=== PATIENT | female | born 1985 | race Caucasian/White ===

== ENCOUNTER → 2017-11-03 15:37 | Outpatient (REF) | payer MEDICARE, MEDICAID, SELFPAY ==
--- NOTE | 2017-11-03 15:00 | SKI_PTH ---
PATIENT: Cassie Argueta LOC: [facility] U#:[id number] AGE/SX: 39/F ROOM: RE11/03/[address]: Silvia Appiah : 1985 BED: DIS: SPEC #: [id number] RECD: 11/04/17 12:25 STATUS: SD LOPEZ #: [id number] MUSTAPHA: 11/03/17 15:[address]: Silvia Appiah DEPT: Surgical Specimen RECD BY: Enid Bates ENTERED: 11/04/17 12:27 SP TYPE: JAMIE OT DR: Anny Willoughby Tissues: 1 - SKIN BIOPSY(SHAVE/PUNCH) Procedures: SKIN LEVEL 4 SPECIAL STAIN 1 Comments: [id number]
== END ==
LOC: NCHCN 15:37
PROVIDERS: Visit Provider Nurse Practitioner
DX: B35.3 Tinea pedis (principal)
CPT/HCPCS: 88305; 88312

== ENCOUNTER 2018-04-22 01:25 | Outpatient (CLI) | payer MEDICARE, MEDICAID, SELFPAY ==
[2018-04-22 10:20] LABS: Abs Immature Grans 0.01 k/cumm (0.0-0.09); Absolute Basophil Count 0.01 k/cumm (0.0-0.2); Absolute Eosinophil Count 0.09 k/cumm (0.0-0.7); Absolute Lymphocyte Count 1.26 k/cumm (1.2-3.4); Absolute Monocyte Count 0.51 k/cumm (0.11-0.7); Absolute Neutrophil Count 2.49 k/cumm (1.2-6.7); Basophils % 0.2; Eosinophils % 2.1; HCT 45.2 % (36.0-46.0); HGB 15.1 g/dL (12.0-15.5); Immature Grans % 0.2; Lymphocytes % 28.8; Mean Corp. HGB Concentration 33.4 g/dL (32.0-36.0); Mean Corpuscular Hemoglobin 28.3 pg (27.0-33.0); Mean Corpuscular Volume 84.8 fL (80-95); Mean Platelet Volume 9.3 fL (8.0-11.0); Monocytes % 11.7; Platelet Count 259 x1000/uL (130-400); RBC 5.33 m/cumm (4.00-5.20); RBC Distribution Width 13.9 % (11.7-14.6); White Blood Cell Count 4.37 k/cumm (4.4-10.8)
[2018-04-22 11:22] LABS: ALT 39 U/L (12-78); AST 22 U/L (15-37); Albumin 3.8 g/dL (3.4-5.0); Alkaline Phosphatase 112 U/L (46-116); Anion Gap 12.3 mmol/L (3-11); BUN 16 mg/dL (7-18); Bilirubin, Total 0.4 mg/dL (0.2-1.0); CO2 24.7 mmol/L (21.0-32.0); Calcium 8.8 mg/dL (8.5-10.1); Chloride 105 mmol/L (98-107); Cholesterol 192 mg/dL (50-200); Glucose 93 mg/dL (70-100); HDL Cholesterol 46 mg/dL (40-60); LDL CHOLESTEROL 136 mg/dL (<100); Sodium 142 mmol/L (136-145); TSH (W/Ref FT4) 11.32 uIU/mL (0.358-3.74); Total Protein 7.5 g/dL (6.4-8.2); Triglyceride 98 mg/dL (30-150)
[2018-04-22 11:47] LABS: FREE T4 0.75 ng/dL (0.76-1.46)
== END 2018-04-22 01:45 ==
PROVIDERS: PCP Nurse Practitioner Family; Visit Provider Nurse Practitioner Family
DX: F31.9 Bipolar disorder, unspecified (principal); Z79.899 Other long term (current) drug therapy; R53.83 Other fatigue; R63.5 Abnormal weight gain
CPT/HCPCS: 36415; 80053; 80061; 83721; 84439; 84443; 85025

== ENCOUNTER 2018-06-09 14:07 | Outpatient (REF) | payer MEDICARE, MEDICAID, SELFPAY ==
[2018-06-09 22:14] LABS: TSH (W/Ref FT4) 2.67 uIU/mL (0.358-3.74)
== END 2018-06-09 14:27 ==
LOC: NCHCN 14:07
PROVIDERS: PCP Nurse Practitioner Family; Visit Provider Nurse Practitioner
DX: E03.9 Hypothyroidism, unspecified (principal); N89.8 Other specified noninflammatory disorders of vagina
CPT/HCPCS: 84443; 87480; 87510; 87660

== ENCOUNTER 2018-10-17 19:30 | Emergency (ER) | payer MEDICARE, MEDICAID, SELFPAY ==
[2018-10-17 19:45] VITALS: BP 152/79; PULSE 87; RESP 18; TEMP 37.3; O2SAT 96
--- NOTE | 2018-10-17 20:36 | ED.GENADUL_ITS ---
Discharge Plan Disposition Patient Disposition: HOME Discharge Details Chief Complaint: SOB Clinical Impression: Chest pain, Shortness of breath Primary Care Provider: Leyda Hawkins ED Provider: Agapito Stubbs Home Meds and New Rx's Prescriptions: Continued oxcarbazepine 150 MG tablet 150 mg PO DAILY RF: 0 levothyroxine 50 mcg Tablet 50 mcg PO DAILY RF: 0 Discharge Instructions Instructions: Chest Pain (ED), Dyspnea (ED) Additional Instructions: Follow-up with your pcp and psychiatrist this week. Return to ED if symptoms worsen. Medical Decision Making Labs, EKG, chest x-ray unremarkable. No evidence of PE, pneumonia, pericarditis, cardiac ischemia or other pathology to account for patient's symptoms. On further discussion of her symptoms, she describes a heaviness in her chest and neck when lying supine and a sensation of not being able to catch her breath until she sits on an incline or standing upright. She also states that when she goes into a deep sleep she awakens gasping for air. I relayed that her symptoms sound like sleep apnea. She informs me that she just had a sleep apnea study but she does not get the results until mid November. I advised her to follow-up with her PCP for results of testing and appropriate treatment if this is identified. She has stopped her new medication which may or may not be attributing to her symptoms. She will follow-up with her primary care provider for further evaluation and treatment. ED return precautions reviewed. HALEY Lazo is a 33-year-old woman with history of bipolar disorder with psychosis, presenting for evaluation of which she believes to be medication side effect. She previously was on Zyprexa but this was no longer effective and she was having adverse effects so she discontinued it last month and started a new medication called Vraylar. She continues with her mood stabilizer which seems to be effective. She states that over the past week since increasing dose of Vraylar, she has felt chest discomfort and shortness of breath when she lies flat. Symptoms are worse when she is trying to sleep at night. Her prescriber instructed her to discontinue the Vraylar and come to the emergency department for evaluation. She has no history of known cardiovascular disease. She currently has no symptoms. General Date/Time Provider Initiated Documentation: 10/17/18 20:00 . Related Data Home Medications Medication Instructions Recorded Confirmed oxcarbazepine 150 mg PO DAILY 05/30/15 10/17/18 levothyroxine 50 mcg PO DAILY 10/17/18 10/17/18 Allergies Allergy/AdvReac Type Severity Reaction Status Date / Time lamotrigine [From Lamictal] Allergy Severe face swells Unverified 10/26/15 11:58 aluminum hydroxide Allergy Intermediate Swelling/Ed Unverified 10/26/15 11:58 [From Mylanta] samantha calcium carbonate Allergy Intermediate Swelling/Ed Unverified 10/26/15 11:58 [From Mylanta] samantha magnesium carbonate Allergy Intermediate Swelling/Ed Unverified 10/26/15 11:58 [From Mylanta] samantha magnesium hydroxide Allergy Intermediate Swelling/Ed Unverified 10/26/15 11:58 [From Mylanta] samantha simethicone [From Mylanta] Allergy Intermediate Swelling/Ed Unverified 10/26/15 11:58 samantha benzoyl peroxide AdvReac Unknown Skin Rash Unverified 06/01/17 06:43 Barium used for barium AdvReac Intermediate Nausea Uncoded 10/26/15 11:58 swallow General Stated Complaint: SOB INDER: 3 Review of Systems Constitutional Denies chills, Denies fatigue, Denies fever(s) and Denies lethargy Eyes Denies loss of vision ENT Denies nasal congestion and Denies sore throat Cardiovascular Denies chest pain and Denies dyspnea Respiratory Denies cough and Denies dyspnea Gastrointestinal Denies abdominal pain, Denies nausea and Denies vomiting Musculoskeletal Denies back pain, Denies muscle weakness and Denies numbness Integumentary/Breasts Denies rash Neurologic Denies focal weakness, Denies loss of vision and Denies numbness Endocrine Denies fatigue Hematologic/Lymphatic Denies easy bruising [facility] Social History Smoking/Tobacco Use Status: Never Alcohol Intake: never Drug use: Never Substance use type: does not use Do you feel safe in your relationship?: Yes Exam Const General: cooperative, healthy appearing and no acute distress [facility] Head: normal to inspection Ears: hearing grossly normal bilaterally Eyes EOM: EOM intact bilaterally Neck Neck: normal visual inspection Resp Effort & Inspection: normal respiratory effort Auscultation: clear to auscultation bilaterally Cardio Rate: regular rate Rhythm: regular rhythm Heart Sounds: no murmurs GI Palpation: soft and nontender Skin General skin exam: no rashes or lesions noted Neuro General: alert, awake and oriented x3 Speech: speech normal Gait: normal gait Extrem General: normal to inspection Course Vital Signs Temperature 37.3 C 10/17/18 19:45 Pulse 87 10/17/18 19:45 Respiratory Rate 18 10/17/18 19:45 Blood Pressure 152/79 H 10/17/18 19:45 Pulse Oximetry 96 10/17/18 19:45 Temperature 37.3 C 10/17/18 19:45 Temperature Source Oral 10/17/18 19:45 Pulse 87 10/17/18 19:45 Respiratory Rate 18 10/17/18 19:45 Blood Pressure 152/79 H 10/17/18 19:45 Pulse Oximetry 96 10/17/18 19:45
[2018-10-17 21:07] VITALS: RESP 18
[2018-10-17 21:17] LABS: Absolute Basophil Count 0.03 k/cumm (0.0-0.2); Absolute Eosinophil Count 0.06 k/cumm (0.0-0.7); Absolute Lymphocyte Count 2.25 k/cumm (1.2-3.4); Absolute Monocyte Count 0.54 k/cumm (0.11-0.7); Basophils % 0.4; Eosinophils % 0.8; HCT 44.1 % (36.0-46.0); HGB 14.7 g/dL (12.0-15.5); Lymphocytes % 30.5; Mean Corp. HGB Concentration 33.3 g/dL (32.0-36.0); Mean Corpuscular Hemoglobin 28.3 pg (27.0-33.0); Monocytes % 7.3; Platelet Count 276 x1000/uL (130-400); RBC 5.19 m/cumm (4.00-5.20); White Blood Cell Count 7.38 k/cumm (4.4-10.8)
[2018-10-17 21:36] LABS: ALT 58 U/L (12-78); AST 21 U/L (15-37); Albumin 3.9 g/dL (3.4-5.0); Alkaline Phosphatase 104 U/L (46-116); Anion Gap 9.2 mmol/L (3-11); BUN 17 mg/dL (7-18); Bilirubin, Total 0.2 mg/dL (0.2-1.0); CO2 27.8 mmol/L (21.0-32.0); CREATININE 0.74 mg/dL (0.55-1.02); Calcium 9.2 mg/dL (8.5-10.1); Chloride 104 mmol/L (98-107); Glucose 106 mg/dL (70-100); NT-proBNP 41 pg/mL; Potassium 3.5 mmol/L (3.5-5.1); Sodium 141 mmol/L (136-145); Total Protein 8.2 g/dL (6.4-8.2)
[2018-10-17 21:37] LABS: Troponin I < 0.05 ng/mL (0.00-0.06)
--- NOTE | 2018-10-17 22:07 | DI.RAD_ITS ---
SYMPTOM/DIAGNOSIS: DYSPNEA, CHEST PAIN PA AND LATERAL CHEST: The heart is normal in size. The lungs are clear. The mediastinal structures and pleura appear intact. CONCLUSION: Normal chest.
[2018-10-17 22:18] LABS: D-Dimer 160 ng/mlFEU (<500)
--- NOTE | 2018-10-17 22:55 | DI.VRAD_ITS ---
EXAM: XR Chest, 2 Views EXAM DATE/TIME: 10/17/2018 10:09 PM CLINICAL HISTORY: 33 years old, female; Other: Dyspnea and chest pain TECHNIQUE: Imaging protocol: XR of the chest, 2 views. COMPARISON: No relevant prior studies available. FINDINGS: Lungs: Clear lungs. Pleural space: No pneumothorax. No sizable pleural effusion. Heart/Mediastinum: No cardiomegaly. Bones/joints: Unremarkable. IMPRESSION: Clear lungs. Dictated and Authenticated by: Hiram Fermin MD. Ordering:ROSA Altman MD
[2018-10-17 23:26] VITALS: BP 152/79; PULSE 87; RESP 18; O2SAT 96
== END 2018-10-17 23:20 | disposition home or self-care (01) ==
PROVIDERS: Emergency Provider Physician Assistant Medical; PCP Nurse Practitioner Family
DX: R07.9 Chest pain, unspecified (principal); R06.02 Shortness of breath
CPT/HCPCS: 36415; 80053; 81025; 93005; 99285; 71046; 83880; 84484; 84703; 85025; 85379; 93010

== ENCOUNTER 2019-06-27 02:03 | Outpatient (CLI) | payer MEDICARE, MEDICAID, SELFPAY ==
--- NOTE | 2019-06-27 | DI.MRI_ITS ---
EXAM: MR BRAIN PITUITARY WO/W CLINICAL HISTORY: ENLARGED PITUITARY GLAND, E23.6. TECHNIQUE: Multiplanar multisequence MRI was performed. MR examination of the brain was performed w ith additional multiplanar thin slice imaging of the pituitary prior to and following contrast admini stration. COMPARISON: MRI BRAIN - PITUITARY W/WO from 07/04/2009 FINDINGS: Examination is compared to prior study of July 2009. Pituitary is mildly enlarged, measuring about 11 x 8 x 16 millimeters, compared to about 10 x 9 x 17 millimeters on the prior study. No invasion o f surrounding structures. No deformity of the optic chiasm. Unremarkable appearance of the sphenoid sinus. No signal abnormality identified in the brain. Ventricular system is normal in appearance. Diffusio n-weighted imaging and susceptibility-weighted imaging unremarkable. Normal flow void in the [place] vasculature. IMPRESSION: Mild pituitary enlargement stable since prior study of 07/04/2009. DATA REPOSITORY:
[2019-06-27] MEDS: Normal Saline Flush 10 ML SYR IVP (14:27)
[2019-06-27] MEDS: Gadoterate meglumine 20 ML VIAL IVP (14:28)
== END 2019-06-27 02:23 ==
PROVIDERS: PCP Nurse Practitioner Family; Visit Provider Nurse Practitioner Family
DX: E23.6 Other disorders of pituitary gland (principal)
CPT/HCPCS: 70553

== ENCOUNTER 2019-09-14 14:12 | Outpatient (REF) | payer MEDICARE, MEDICAID, SELFPAY ==
[2019-09-14 21:10] LABS: TSH (W/Ref FT4) 0.89 uIU/mL (0.36-3.74)
== END 2019-09-14 14:32 ==
LOC: NCHCN 14:12
PROVIDERS: PCP Nurse Practitioner Family; Visit Provider Nurse Practitioner Family
DX: E03.9 Hypothyroidism, unspecified (principal)
CPT/HCPCS: 84443

== ENCOUNTER 2020-01-08 01:38 | Outpatient (CLI) | payer MEDICARE, MEDICAID, SELFPAY | END 2020-01-08 01:58 | PROVIDERS: PCP Nurse Practitioner Family; Visit Provider Physician Assistant | DX: E66.9 Obesity, unspecified (principal); Z01.83 Encounter for blood typing | CPT/HCPCS: 36415; 86900; 86901 ==

== ENCOUNTER 2020-08-01 19:15 | Outpatient (REF) | payer MEDICARE, MEDICAID, SELFPAY ==
[2020-08-01 21:25] LABS: TSH (W/Ref FT4) 0.96 uIU/mL (0.36-3.74)
[2020-08-01 21:55] LABS: Hemoglobin A1C 5.1 % (<5.7)
== END 2020-08-01 19:16 | disposition home or self-care (01) ==
LOC: NCHCN 19:15
PROVIDERS: PCP Nurse Practitioner Family; Visit Provider Nurse Practitioner Family
DX: E03.9 Hypothyroidism, unspecified (principal); Z79.899 Other long term (current) drug therapy
CPT/HCPCS: 83036; 84443

== ENCOUNTER 2020-10-03 23:46 | Emergency (ER) | payer MEDICARE, MEDICAID, SELFPAY ==
--- NOTE | 2020-10-03 00:10 | DI.CT_ITS ---
Exam(s) CT FACIAL W EXAM: CT FACIAL W CLINICAL HISTORY: left mastoid pain TECHNIQUE: COMPARISON: No exams were available for comparison FINDINGS: CT examination of the facial region was performed utilizing IV infusion of 100 cc of Omnipaque 350. Visualized brain orbits appear normal. Paranasal sinuses are clear. Mastoid air cells are clear. T emporal bone structures appear intact. No evidence bony mass or osteomyelitis. Marker is placed in posterior high cervical region at the site of palpable abnormality. This corresp onds with a 6 millimeter in diameter lymph node identified on transaxial imaging, similar appearing l ymph nodes are seen throughout the cervical chains bilaterally. There is no indication of pathology. IMPRESSION: Negative facial CT, palpable abnormality appears to correspond to a lymph node which is normal in tre earance. If there is a high clinical suspicion of pathology biopsy could be obtained, however findin gs are more likely of no clinical significance.. RADIATION DOSE DELIVERED: 546.87mGy.cm Total DLP RADIATION OPTIMIZATION: All CT scans at this facility use at least one of these dose optimization te chniques: automated exposure control; mA and/or kV adjustment per patient size (includes targeted exa ms where dose is matched to clinical indication); or iterative reconstruction.
[2020-10-03 23:49] VITALS: BP 182/100; PULSE 73; RESP 16; TEMP 36.7; O2SAT 98
--- NOTE | 2020-10-04 | ED.GENADUL_ITS ---
Discharge Plan Disposition Patient Disposition: HOME Condition: Stable Discharge Details Clinical Impression: Pain of left mastoid, Enlarged lymph node Primary Care Provider: Leyda Hawkins ED Provider: Roni Lucas Home Meds and New Rx's Prescriptions: Continued tyrosine 500 mg capsule 700 mg PO DAILY RF: 0 cyclobenzaprine 5 mg Tablet 5 mg PO PRN PRNRF: 0 Discharge Instructions Additional Instructions: your cat scan and blood work did not show any concerning findings, you do have an enlarged lymph node on the cat scan for pain you can take 1000mg tylenol and 600mg ibuprofen every 6 hours for pain as needed if you have severe worsening pain, fevers or feel more ill return to the emergency department Medical Decision Making 35 yo female comes in with 4-5 hours of pain behind the left ear. STates she felt well throughout the day she felt well then suddenly developed the pain. no trauma, fevers, ear drainage. She arrives appearing well in no distress Her right tm, external auditory canal and external mastoid exam is normal. Her left tm and external auditory canal is normal. She does have some mild swelling behind the ear over the mastoid area no erythema or fluctance. Could be sebaceous cyst vs lymphadenitits, but given the tenderness and swelling in this area will obtain Ct to further evaluate for possible mastoiditis ct shows no emergent findings, does have an enlarged lymph node where she is having pain so this could be the cause of her symptoms. Remains stable, will be discharged with advise to follow up with pcp and return precautions given Differential Diagnosis Differential Diagnosis: lymphadenitits, mastoiditis Imaging Data Radiologic Study: Attestation: I personally reviewed and interpreted this imaging study as follows: Imaging: CT Scan Radiologist's impression: PROCEDURE INFORMATION: Exam: CT Maxillofacial With Contrast Exam date and time: 10/03/2020 00:00 Age: 35 years old Clinical indication: Other: Left mastoid pain; Patient HX: No known trauma. No recent surgeries. Pain since 6pm. Bb placed behind the left ear to antoni area of pain TECHNIQUE: Imaging protocol: Computed tomography images of the face with intravenous contrast. Radiation optimization: All CT scans at this facility use at least one of these dose optimization techniques: automated exposure control; mA and/or kV adjustment per patient size (includes targeted exams where dose is matched to clinical indication); or iterative reconstruction. Contrast material: OMNIPAQUE 350; Contrast volume: 100 ml; Contrast route: INTRAVENOUS (IV); COMPARISON: MR BRAIN PITUITARY WO/W 06/27/2019 14:10 FINDINGS: Orbital cavity: The bony orbits are intact. The globe and lens are intact bilaterally. No significant retroconal collections. Bones/joints: No acute fracture. Paranasal sinuses: No acute sinusitis. Mastoid air cells: No mastoid effusion. No mastoid erosions. Soft tissues: No collections or mass lesions. Lymph nodes: Scattered jugular chain and jugulodigastric lymph nodes do not appear pathologically enlarged. In the region of clinical concern is a subcentimeter short axis benign-appearing posterior cervical lymph node. There is no significant surrounding edema however this could represent the palpable abnormality. Lab Data Lab results reviewed: Yes I reviewed the patient's lab results. HPI General Mode of arrival: ambulatory . Date/Time Provider Initiated Documentation: 10/03/20 23:52 . Limitations to Documentation: no limitations . Information obtained by: patient . History of Present Illness 35 year old F presents to the emergency department with the chief complaint of pain behind left ear, described as moderate, Quality is described as aching, Patient started experiencing this hour(s) (6) and it has been constant. No relieving factors improve symptom(s), No exacerbating factors reported . Patient notes no other symptoms.. Related Data Home Medications Medication Instructions Recorded Confirmed cyclobenzaprine 5 mg PO PRN PRN 10/03/20 10/03/20 tyrosine 700 mg PO DAILY 10/03/20 10/03/20 Allergies Allergy/AdvReac Type Severity Reaction Status Date / Time lamotrigine [From Lamictal] Allergy Severe face swells Unverified 10/03/20 23:53 aluminum hydroxide Allergy Intermediate Swelling/Ed Unverified 10/03/20 23:53 [From Mylanta] samantha calcium carbonate Allergy Intermediate Swelling/Ed Unverified 10/03/20 23:53 [From Mylanta] samantha magnesium carbonate Allergy Intermediate Swelling/Ed Unverified 10/03/20 23:53 [From Mylanta] samantha magnesium hydroxide Allergy Intermediate Swelling/Ed Unverified 10/03/20 23:53 [From Mylanta] samantha simethicone [From Mylanta] Allergy Intermediate Swelling/Ed Unverified 10/03/20 23:53 samantha benzoyl peroxide AdvReac Unknown Skin Rash Unverified 10/03/20 23:53 Barium used for barium AdvReac Intermediate Nausea Uncoded 10/03/20 23:53 swallow General Stated Complaint: EarProblem INDER: 5 Review of Systems All systems reviewed & are unremarkable except as noted in HPI and below Constitutional Constitutional: Denies chills, Denies fever(s) and Denies weakness Cardiovascular Cardiovascular: Denies chest pain and Denies dyspnea Respiratory Respiratory: Denies cough and Denies dyspnea Gastrointestinal Gastrointestinal: Denies abdominal pain, Denies nausea and Denies vomiting Musculoskeletal Musculoskeletal: Denies joint swelling Neurologic Neurologic: Denies weakness [facility] Social History Smoking/Tobacco Use Status: Never Smoking risk assessment performed?: Yes Alcohol Intake: never Drug use: Never Substance use type: does not use Do you feel safe in your relationship?: Yes Exam Const General: no acute distress Orientation: alert HENMT Head: normal to inspection Ears: TM's normal bilaterally General nose exam: external nose normal Mouth: moist mucous membranes Eyes General: appearance normal, both eyes and all related structures Neck Neck: normal visual inspection Resp Effort & Inspection: normal respiratory effort and able to speak in complete sentences Cardio Rate: regular rate Skin General skin exam: no rashes or lesions noted Neuro General: patient alert and patient oriented x3 Extrem General: normal to inspection Psych Mental Status: mental status grossly normal Course Vital Signs Vital signs: Vital Signs Temperature 36.7 C 10/03/20 23:49 Pulse 73 10/03/20 23:49 Respiratory Rate 16 10/03/20 23:49 Blood Pressure 182/100 H 10/03/20 23:49 Pulse Oximetry 98 10/03/20 23:49 Temperature 36.7 C 10/03/20 23:49 Temperature Source Oral 10/03/20 23:49 Pulse 73 10/03/20 23:49 Respiratory Rate 16 10/03/20 23:49 Respiratory Effort 10/03/20 23:54 Blood Pressure 182/100 H 10/03/20 23:49 Blood Pressure Position Sitting 10/03/20 23:49 Pulse Oximetry 98 10/03/20 23:49 Oxygen Delivery Method Room Air 10/03/20 23:49 Oxygen Flow Rate 0 10/03/20 23:49 Pain Level 5 10/03/20 23:54
[2020-10-04 00:22] LABS: Abs Immature Grans 0.02 10^3/uL (0.0-0.06); Absolute Basophil Count 0.03 10^3/uL (0.0-0.2); Absolute Eosinophil Count 0.14 10^3/uL (0.0-0.7); Absolute Lymphocyte Count 2.95 10^3/uL (1.2-3.4); Absolute Monocyte Count 0.55 10^3/uL (0.1-0.8); Absolute Neutrophil Count 4.73 10^3/uL (1.2-6.7); Basophils % 0.4; Eosinophils % 1.7; HCT 44.8 % (36.0-46.0); HGB 14.3 g/dL (11.2-15.7); Immature Grans % 0.2; MCH 27.9 pg (27.0-33.0); MCHC 31.9 % (32.0-36.0); MCV 87.5 fL (80-95); MPV 9.3 fL (8.0-11.0); Monocytes % 6.5; Neutrophils % 56.2; Nucleated RBC 0 %; Platelet Count 301 10^3/uL (130-400); RBC 5.12 10^6/uL (3.93-5.22); RDW 12.4 % (11.7-14.6); RDW-SD 39.6 fL; WBC 8.42 10^3/uL (4.4-10.8)
[2020-10-04 00:35] LABS: ALT 35 U/L (14-59); AST 20 U/L (15-37); Albumin 3.9 g/dL (3.4-5.0); Alkaline Phosphatase 110 U/L (46-116); Anion Gap 8.5 mmol/L (3-11); BUN 12 mg/dL (7-18); Bilirubin, Total 0.2 mg/dL (0.2-1.0); CO2 27.5 mmol/L (21.0-32.0); CREATININE 0.9 mg/dL (0.55-1.02); Chloride 108 mmol/L (98-107); Glucose 103 mg/dL (74-106); Potassium 3.6 mmol/L (3.5-5.1); Sodium 144 mmol/L (136-145); Total Protein 7.9 g/dL (6.4-8.2)
[2020-10-04] MEDS: Ketorolac 15 MG/ML VIAL IVP (00:41)
[2020-10-04] MEDS: Omnipaque 350 MG/ML 100 ML BTL IJ (00:43)
[2020-10-04] MEDS: Normal Saline Flush 10 ML SYR IVP (00:44)
[2020-10-04] MEDS: Normal Saline - Diluent 50 ML VIAL IV (00:44)
[2020-10-04 00:45] VITALS: BP 143/90; PULSE 77; RESP 18; O2SAT 98
--- NOTE | 2020-10-04 01:40 | DI.VRAD_ITS ---
PROCEDURE INFORMATION: Exam: CT Maxillofacial With Contrast Exam date and time: 10/03/2020 00:00 Age: 35 years old Clinical indication: Other: Left mastoid pain; Patient HX: No known trauma. No recent surgeries. Pain since 6pm. Bb placed behind the left ear to antoni area of pain TECHNIQUE: Imaging protocol: Computed tomography images of the face with intravenous contrast. Radiation optimization: All CT scans at this facility use at least one of these dose optimization techniques: automated exposure control; mA and/or kV adjustment per patient size (includes targeted exams where dose is matched to clinical indication); or iterative reconstruction. Contrast material: OMNIPAQUE 350; Contrast volume: 100 ml; Contrast route: INTRAVENOUS (IV); COMPARISON: MR BRAIN PITUITARY WO/W 06/27/2019 14:10 FINDINGS: Orbital cavity: The bony orbits are intact. The globe and lens are intact bilaterally. No significant retroconal collections. Bones/joints: No acute fracture. Paranasal sinuses: No acute sinusitis. Mastoid air cells: No mastoid effusion. No mastoid erosions. Soft tissues: No collections or mass lesions. Lymph nodes: Scattered jugular chain and jugulodigastric lymph nodes do not appear pathologically enlarged. In the region of clinical concern is a subcentimeter short axis benign-appearing posterior cervical lymph node. There is no significant surrounding edema however this could represent the palpable abnormality. IMPRESSION: 1. No acute findings or suspicious lesions. 2. Benign-appearing left posterior cervical lymph node, could correspond to the palpable abnormality. Dictated and Authenticated by: Bailey Hood MD. Ordering:SANDOVAL Tamayo MD
[2020-10-04 01:55] VITALS: BP 146/94; PULSE 60; RESP 16; O2SAT 98
== END 2020-10-04 02:04 | disposition home or self-care (01) ==
LOC: ER 10-04 01:17
PROVIDERS: Emergency Provider Emergency Medicine; PCP Nurse Practitioner Family
DX: H92.02 Otalgia, left ear (principal); R59.0 Localized enlarged lymph nodes
CPT/HCPCS: 36415; 80053; 81025; 96374; 99285; 70487; 85025; 99284; J1885; J3490

== ENCOUNTER 2021-09-07 18:57 | Emergency (ER) | payer MEDICARE, MEDICAID, SELFPAY ==
[2021-09-07 19:00] VITALS: BP 148/85; PULSE 73; RESP 14; TEMP 36.7; O2SAT 98
[2021-09-07] MEDS: Fluorescein STRIPS 100/BOX 1 MG OP (19:17)
--- NOTE | 2021-09-07 19:45 | W.ED.GENAD ---
Discharge Plan Disposition Patient Disposition: HOME Condition: Stable Discharge Details Clinical Impression: Chemical burn of conjunctiva Primary Care Provider: Leyda Hawkins ED Provider: Enid Hunter Home Meds and New Rx's Prescriptions: New ketorolac [Acular] 0.5 % drops 1 drp ophthalmic (eye) QID Qty: 5 0RF Continued tyrosine 500 mg capsule 700 mg PO DAILY Label Comments: 1 daily cyclobenzaprine 5 mg Tablet 5 mg PO PRN PRN Discharge Instructions Additional Instructions: Follow-up with your eye doctor tomorrow Apply the erythromycin every 3 hours while awake Use Lacri-Lube in between Return with vision change, or with any Discharge Data Discharge Date/Time-TO BE ENTERED AT DEPARTURE: 09/07/21 20:10 Medical Decision Making No fluorescein uptake on slit-lamp exam, suspect chemical conjunctivitis Will refer to [facility] eye care Placed on erythromycin ointment and Lacri-Lube Given a prescription for Acular Return precautions discussed and patient expressed understanding Placed on eye care list for follow-up tomorrow No evidence of ulceration and instructed to refrain from replacing contacts until cleared by ophthalmology Medical Records Medical records reviewed: Yes I reviewed the patient's medical records. Lab Data Lab results reviewed: Yes I reviewed the patient's lab results. HPI General Date/Time Provider Initiated Documentation: 09/07/21 19:05. HPI Narrative: This 36-year-old female with history of bipolar disorder presents with report of right eye pain. She had cutting her contacts in this morning after using cleaning KerraContact solution and her right eye has been burning since that time. She irrigated with cold water and has had cold water compresses applied throughout the day. She states that her vision is blurred and cleared with blinking. She denies any headache or any additional injuries. She states that the contacts are soaking in the solution and she forgot to irrigate them prior to placing them in her eyes. She is remove the contacts at that time. She describes the pain as burning sensation that is worse with blinking. She reports that she is also light sensitive. Related Data Home Medications Medication Instructions Recorded Confirmed cyclobenzaprine 5 mg tablet 5 mg PO PRN PRN 10/03/20 10/03/20 tyrosine 500 mg capsule 700 mg PO DAILY 10/03/20 10/03/20 ketorolac 0.5 % eye drops (Acular) 1 drp ophthalmic (eye) QID #5 mL 09/07/21 Previous Rx's Medication Instructions Recorded ketorolac 0.5 % eye drops (Acular) 1 drp ophthalmic (eye) QID #5 mL 09/07/21 Allergies Allergy/AdvReac Type Severity Reaction Status Date / Time lamotrigine [From Lamictal] Allergy Severe face swells Unverified 09/07/21 19:04 aluminum hydroxide Allergy Intermediate Swelling/Ed Unverified 09/07/21 19:04 [From Mylanta] samantha calcium carbonate Allergy Intermediate Swelling/Ed Unverified 09/07/21 19:04 [From Mylanta] samantha magnesium carbonate Allergy Intermediate Swelling/Ed Unverified 09/07/21 19:04 [From Mylanta] samantha magnesium hydroxide Allergy Intermediate Swelling/Ed Unverified 09/07/21 19:04 [From Mylanta] samantha simethicone [From Mylanta] Allergy Intermediate Swelling/Ed Unverified 09/07/21 19:04 samantha benzoyl peroxide AdvReac Unknown Skin Rash Unverified 09/07/21 19:04 Barium used for barium AdvReac Intermediate Nausea Uncoded 09/07/21 19:04 swallow General Stated Complaint: EyeProblem INDER: 4 Review of Systems All systems reviewed & are unremarkable except as noted in HPI and below PFSH All Active Problems (Updated 09/07/21 @ 19:46 by PHIL Ibarra) Right flank pain (Acute) Pain of left mastoid (Acute) Enlarged lymph node (Acute) Chemical burn of conjunctiva (Acute) Social History Smoking/Tobacco Use Status: Never Smoking risk assessment performed?: Yes Alcohol Intake: never Drug use: Never Substance use type: does not use Do you feel safe at home: Yes Do you feel safe in your relationship?: Yes Exam Const General: cooperative, comfortable and no acute distress Nutritional Appearance: average body habitus Orientation: alert and oriented x3 HENMT Other: No periorbital injection or irritation Eyes Alignment and Position: alignment normal Periorbital: periorbital findings normal Eyelids: eyelids normal Conjunctivae: other (Injected right conjunctiva) Cornea: corneas normal Pupils: PERRL EOM: EOM intact bilaterally Other: No fluorescein uptake Neuro General: patient alert Course Vital Signs Vital signs: Vital Signs Temperature 36.7 C 09/07/21 19:00 Pulse 73 09/07/21 19:00 Respiratory Rate 14 09/07/21 19:00 Blood Pressure 148/85 H 09/07/21 19:00 Pulse Oximetry 98 09/07/21 19:00 Temperature 36.7 C 09/07/21 19:00 Temperature Source Skin 09/07/21 19:00 Pulse 73 09/07/21 19:00 Respiratory Rate 14 09/07/21 19:00 Respiratory Effort Non-Labored 09/07/21 19:06 Blood Pressure 148/85 H 09/07/21 19:00 Blood Pressure Position Sitting 09/07/21 19:00 Pulse Oximetry 98 09/07/21 19:00 Oxygen Delivery Method Room Air 09/07/21 19:00 Oxygen Flow Rate 0 09/07/21 19:00 Pain Level 7 09/07/21 19:00
[2021-09-07 20:00] VITALS: BP 148/85; PULSE 73; RESP 14; TEMP 36.7; O2SAT 98
[2021-09-07] MEDS: Erythromycin Ophth Oint 3.5 GM TUBE OD (20:01)
== END 2021-09-07 20:10 | disposition home or self-care (01) ==
PROVIDERS: Emergency Provider Physician Assistant; PCP Nurse Practitioner Family
DX: T65.894A Toxic effect of other specified substances, undetermined, initial encounter (principal); T26.61XA Corrosion of cornea and conjunctival sac, right eye, initial encounter
CPT/HCPCS: 99283

== ENCOUNTER → 2021-09-18 02:33 | Outpatient (CLI) | payer MEDICARE, MEDICAID, SELFPAY ==
--- NOTE | 2021-09-18 12:30 | DI.RAD_ITS ---
Exam(s) XR FOOT LT COMPLETE EXAM: XR FOOT LT COMPLETE CLINICAL HISTORY: LT FOOT PAIN, M79.672. TECHNIQUE: 2D digital imaging was performed. COMPARISON: CR RIGHT GREAT TOE from 09/11/2013 FINDINGS: 3 views No evidence of fracture or diastasis of the Lisfranc joint. Hallux valgus noted. No prominent degen erative changes in the metatarsophalangeal joint of the great toe. No osseous lesions nor erosions. No pes planus. Bone density normal. No IMPRESSION: Hallux valgus. DATA REPOSITORY: RADIATION DOSE DELIVERED:
== END ==
PROVIDERS: PCP Nurse Practitioner Family; Visit Provider Family Medicine
DX: M20.12 Hallux valgus (acquired), left foot
CPT/HCPCS: 73630

== ENCOUNTER 2021-09-30 15:00 | Outpatient (REF) | payer MEDICARE, MEDICAID, SELFPAY ==
[2021-09-30 14:36] LABS: HCT 43.9 % (36.0-46.0); HGB 13.7 g/dL (11.2-15.7); MCH 27.3 pg (27.0-33.0); MCHC 31.2 % (32.0-36.0); MCV 88 fL (80-95); MPV 9.8 fL (8.0-11.0); Platelet Count 292 10^3/uL (130-400); RBC 5.02 10^6/uL (3.93-5.22); RDW 12.9 % (11.7-14.6); RDW-SD 40.6 fL; WBC 6.58 10^3/uL (4.4-10.8)
[2021-09-30 14:43] LABS: ESR 15 mm/hr (0-20)
[2021-09-30 15:08] LABS: TSH (W/Ref FT4) 0.69 uIU/mL (0.36-3.74)
[2021-10-03 14:16] LABS: Estradiol, Mass Spectrometry 133 pg/mL; Estrone 82 pg/mL
[2021-10-06 15:43] LABS: Testosterone, Total 20 ng/dL (8-60)
== END 2021-09-30 15:01 | disposition home or self-care (01) ==
LOC: NCHCN 15:00
PROVIDERS: PCP Nurse Practitioner Family; Visit Provider Nurse Practitioner Family
DX: E03.9 Hypothyroidism, unspecified (principal); R60.9 Edema, unspecified; L67.9 Hair color and hair shaft abnormality, unspecified; Z87.42 Personal history of other diseases of the female genital tract; Z00.00 Encounter for general adult medical examination without abnormal findings
CPT/HCPCS: 84403; 85027; 85652; 82670; 82679; 84443

== ENCOUNTER → 2021-10-29 01:39 | Outpatient (CLI) | payer MEDICARE, MEDICAID, SELFPAY ==
--- NOTE | 2021-10-29 10:30 | DI.US_ITS ---
Exam(s) US BREAST LT COMPLETE MG MAMMO DIAGNOSTIC BI EXAM: MAMMO DIAGNOSTIC BI and complete U/S breast LT CLINICAL HISTORY: BREAST TENDERNESS, N64.4; BREAST LUMP, N63.0; BASELINE MAMMO. TECHNIQUE: Craniocaudal and mediolateral oblique Full Field Digital Mammography views with Computer Aided Diagnosis followed by Tomosynthesis and left breast ultrasound. COMPARISON: No priors for comparison. FINDINGS: Mammography/Tomosynthesis: Masses/Architectural Distortion: None seen. Microcalcifictions: No suspicious pleomorphic-type are seen. Skin Thickening/Nipple Retraction: None. Complete left breast US: Echotexture: Normal appearance of the glandular tissue. Shadowing: No suspicious foci. Cyst: None. Solid lesions: None seen. Ductal dilation: None. IMPRESSION: 1. No evidence of malignancy is noted. 2. Unless there is more urgent need, follow-up screening mammography is recommended, as per [place] [employer] guidelines. 3. The findings were discussed with the patient on the date of the examination. BI-RADS Category 1 - Negative Breast Density - Category B - Scattered areas of fibroglandular density Breast density Category C or D implies that the patient has dense breast tissue. Dense breast tissue can make it harder to find cancer on a mammogram. Dense breast tissue is also associated with an incr eased risk of breast cancer. This information about the result of the mammogram report was provided to the patient to raise their awareness. Use this report when you speak with the patient about their risks for breast cancer, which includes their family history. At that time, you may recommend additional screening tests (Ultrasoun d or MRI) as these tests may add significant information. A negative radiographic report should not delay biopsy if a dominant or clinically suspicious mass is present. Up to ten percent of cancers are not identified on mammography. A negative report may reinforce clinical impression. Adenosis and dense breasts may obscure an underlying neoplasm. False positive reports average 6 to 10%. Patient will receive a letter notifying them of these results.
== END ==
PROVIDERS: PCP Nurse Practitioner Family; Visit Provider Nurse Practitioner Family
DX: N64.59 Other signs and symptoms in breast (principal); N64.4 Mastodynia; N63.0 Unspecified lump in unspecified breast; R92.8 Other abnormal and inconclusive findings on diagnostic imaging of breast
CPT/HCPCS: 76642; 77062; 77066; G0279

== ENCOUNTER → 2021-11-28 12:40 | Outpatient (CLI) | payer MEDICARE, MEDICAID, SELFPAY ==
--- NOTE | 2021-11-28 | DI.RAD_ITS ---
Exam(s) XR LUMBAR SPINE COMPLETE EXAM: XR LUMBAR SPINE COMPLETE CLINICAL HISTORY: LOW BACK PAIN M54.50. TECHNIQUE: 2D digital imaging was performed. COMPARISON: CT RENAL COLIC WO CONTRAST from 05/31/2017 FINDINGS: Five views No evidence fracture or listhesis. Moderate disc space narrowing at L5-S1 is again noted, as evident on CT scan of 1018. Mild disc space narrowing at L4-5. Other disc spaces normal height. No scolio sis. No osseous lesions. Bone density is normal. SI joints unremarkable. Sys facet joints unremar kable. IMPRESSION: Disc space narrowing as described above. DATA REPOSITORY: RADIATION DOSE DELIVERED:
== END ==
PROVIDERS: PCP Nurse Practitioner Family; Visit Provider Nurse Practitioner Family
DX: M54.59 Other low back pain (principal); M51.37 Other intervertebral disc degeneration, lumbosacral region
CPT/HCPCS: 72110

== ENCOUNTER 2022-04-07 17:05 | Outpatient (REF) | payer MEDICARE, MEDICAID, SELFPAY ==
--- NOTE | 2022-04-07 16:20 | PAPFT_PTH ---
PATIENT: Cassie Argueta LOC: [facility] U#:[id number] AGE/SX: 36/F ROOM: RE04/07/[address]: Zoë Tyler MD : [id number] BED: DIS: 04/07/2022 SPEC #: [id number] RECD: 04/07/22 17:30 STATUS: SD REJamie #: [id number] MUSTAPHA: 04/07/22 16:[address]: Zoë Tyler DEPT: [facility] Cytology RECD BY: Enid Bates ENTERED: 04/07/22 17:30 SP TYPE: PAPFT OTHR DR: Leyda Hawkins Tissues: 1 - CX/ENDOCX FOR PAP SMEARS Procedures: PAP THIN PREP/[facility] Screening HPV DNA PROBE Comments: [id number] (HPV 16 & 18/45)
== END 2022-04-07 17:06 | disposition home or self-care (01) ==
LOC: LBN 17:05
PROVIDERS: PCP Nurse Practitioner Family; Visit Provider Obstetrics & Gynecology
DX: Z12.4 Encounter for screening for malignant neoplasm of cervix (principal); Z11.51 Encounter for screening for human papillomavirus (HPV); R87.810 Cervical high risk human papillomavirus (HPV) DNA test positive; Z01.419 Encounter for gynecological examination (general) (routine) without abnormal findings
CPT/HCPCS: 88142; 87624

== ENCOUNTER → 2022-04-30 12:29 | Outpatient (BNVA) | payer MEDICARE, MEDICAID, SELFPAY | PROVIDERS: PCP Nurse Practitioner Family; Referring Provider Nurse Practitioner Family; Visit Provider Nurse Practitioner Adult Health | DX: G56.01 Carpal tunnel syndrome, right upper limb (principal) | CPT/HCPCS: 95909; 99203; 99214 ==

== ENCOUNTER 2022-06-22 09:49 | Emergency (ER) | payer MEDICARE, MEDICAID, SELFPAY ==
[2022-06-22 09:52] VITALS: BP 131/96; PULSE 82; RESP 20; TEMP 36.6; O2SAT 98
--- NOTE | 2022-06-22 10:00 | DI.RAD_ITS ---
Exam(s) XR CHEST 2V PA LATERAL EXAM: XR CHEST 2V PA LATERAL CLINICAL HISTORY: pneumonia. TECHNIQUE: 2D digital imaging was performed. COMPARISON: No exams were available for comparison FINDINGS: 2 views: Heart size is normal. The mediastinum is not widened. Lungs are clear. No infiltrates nor pleural effusions. IMPRESSION: No acute pulmonary findings. DATA REPOSITORY: RADIATION DOSE DELIVERED:
--- NOTE | 2022-06-22 11:14 | ED.GENADUL_ITS ---
Discharge Plan Disposition Patient Disposition: Home Discharge Details Clinical Impression: Upper respiratory infection Primary Care Provider: Leyda Hawkins ED Provider: Enid Hunter Home Meds and New Rx's Prescriptions: New benzonatate 100 mg capsule 200 mg PO Q6H PRNQty: 14 0RF Continued acetaminophen 325 mg capsule 325 mg PO ONCE PRN levonorgestrel-ethinyl estrad 0.1-20 mg-mcg tablet 1 tab PO DAILY Qty: 84 4RF Rx Instructions: Skip the placebo pills(the different color at the end of the pack) and start the next pack right away to skip your period. levonorgestrel-ethinyl estrad [Vienva] 0.1-20 mg-mcg tablet 1 tab PO DAILY Patient Comments: TAKE ONE TABLET BY MOUTH EVERY DAY cholecalciferol (vitamin D3) 100 mcg (4,000 unit) Capsule 4,000 unit PO DAILY cyclobenzaprine 5 mg Tablet 5 mg PO PRN PRN Discharge Instructions Instructions: Upper Respiratory Infection (ED) Additional Instructions: Please Tessalon Perles as needed for cough Humidifier in your room at night Honey and lemon prior to bed, continue drinking hot tea It will likely take 1 to 2 months before you or significantly improved with your symptoms, you may continue to cough, should you develop fever, chills, or pain in your chest you tried return for reassessment Please follow-up with your primary care physician in 1 to 2 weeks for reassessment Referrals: Leyda Hawkins [Primary Care Provider] - 1 week Medical Decision Making 37-year-old female presenting with pneumonia to right lung in the past 3 weeks, seen in [place] and placed on at both azithromycin and Augmentin States that her symptoms have improved dramatically but she still having cough at night with mucus production Denies any fever or chills, denies any calf pain or swelling Clinically low suspicion for pulmonary embolism, no tachypnea, hypoxia, or tachycardia Declines an inhaler Encouraged fluid hydration, tea, humidifier, and did prescribe additional Tessalon Perles at patient's request Recheck in 1 week recommended Early return precautions reviewed and patient expressed understanding Chest x-ray without evidence of recurrent pneumonia per radiology interpretation and my review HPI General Date/Time Provider Initiated Documentation: 06/22/22 09:58 . HPI Narrative: This 37-year-old female presents with report of history of right middle lobe pneumonia. Patient denies any current shortness of breath. States she has had persistent coughing. She was treated for pneumonia on the third and finished her antibiotics on the . She denies any shortness of breath or chest discomfort. She has still had mucus production. Denies any fever or chills. Related Data Home Medications Medication Instructions Recorded Confirmed cyclobenzaprine 5 mg tablet 5 mg PO PRN PRN 10/03/20 06/22/22 acetaminophen 325 mg capsule 325 mg PO ONCE PRN 04/07/22 06/22/22 levonorgestrel-ethinyl estradiol 1 tab PO DAILY #84 tabs 04/07/22 06/22/22 0.1 mg-20 mcg tablet benzonatate 100 mg capsule 200 mg PO Q6H PRN #14 caps 06/22/22 cholecalciferol (vitamin D3) 100 4,000 unit PO DAILY 06/22/22 06/22/22 mcg (4,000 unit) capsule levonorgestrel-ethinyl estradiol 1 tab PO DAILY 06/22/22 06/22/22 0.1 mg-20 mcg tablet (Vienva) Previous Rx's Medication Instructions Recorded levonorgestrel-ethinyl estradiol 1 tab PO DAILY #84 tabs 04/07/22 0.1 mg-20 mcg tablet benzonatate 100 mg capsule 200 mg PO Q6H PRN #14 caps 06/22/22 Allergies Allergy/AdvReac Type Severity Reaction Status Date / Time lamotrigine [From Lamictal] Allergy Severe face swells Unverified 06/22/22 09:58 aluminum hydroxide Allergy Intermediate Swelling/Ed Unverified 06/22/22 09:58 [From Mylanta] samantha calcium carbonate Allergy Intermediate Swelling/Ed Unverified 06/22/22 09:58 [From Mylanta] samantha magnesium carbonate Allergy Intermediate Swelling/Ed Unverified 06/22/22 09:58 [From Mylanta] samantha magnesium hydroxide Allergy Intermediate Swelling/Ed Unverified 06/22/22 09:58 [From Mylanta] samantha simethicone [From Mylanta] Allergy Intermediate Swelling/Ed Unverified 06/22/22 09:58 samantha cariprazine [From Vraylar] Allergy Other (See Unverified 06/22/22 09:58 Comment) benzoyl peroxide AdvReac Unknown Skin Rash Unverified 06/22/22 09:58 Barium used for barium AdvReac Intermediate Nausea Uncoded 06/22/22 09:58 swallow General Stated Complaint: RespSymp INDER: 4 PFSH All Active Problems (Updated 06/22/22 @ 11:18 by PHIL Ibarra) Pelvic pain (Acute) Incontinence (Acute) Right carpal tunnel syndrome (Acute) Upper respiratory infection (Acute) Medical History Abnormal breast finding Asthma Bipolar 1 disorder Breast lump Breast tenderness Depressed mood Depression Eating disorder Edema Encounter for weight loss counseling Enlarged pituitary gland Foot pain, left Hair abnormality Hand numbness 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 Last CT scan was normal ~. ?? 2ndary to psychotropic medication. History of irregular menstrual cycles History of kidney stones Hyperlipidemia Hypothyroidism Jaw pain Kidney stones Low back pain Migraine Neuroma Obesity Obstructive sleep apnea Pain in left wrist PTSD (post-traumatic stress disorder) Tinea corporis Surgical History [place] teeth removed Family History Father Heart disease Hyperlipidemia Mother Diabetes Hyperlipidemia Thyroid condition Social History Smoking/Tobacco Use Status: Never Smoking risk assessment performed?: Yes Alcohol Intake: never Drug use: Never Substance use type: does not use Do you feel safe at home: Yes Do you feel safe in your relationship?: Yes Female Reproductive History Menstrual Age of Menarche: 15 Duration of menses: >10 days control method: abstinence History History 0 Para Hx # Term Pregnancies Multiple births Hx # Pregnancies Ectopic pregnancies AB induced Hx Number of Living Children AB spontaneous Exam Narrative Exam Narrative: 37-year-old female in no acute distress, lungs clear to auscultation, no respiratory distress, cardiac rate rhythm regular, no abdominal tenderness, fully alert and oriented, no calf swelling or tenderness, distal pulses intact Course Vital Signs Vital signs: Vital Signs Temperature 36.6 C 06/22/22 09:52 Pulse 82 06/22/22 09:52 Respiratory Rate 20 06/22/22 09:52 Blood Pressure 131/96 H 06/22/22 09:52 Pulse Oximetry 98 06/22/22 09:52 Temperature 36.6 C 06/22/22 09:52 Temperature Source Tympanic 06/22/22 09:52 Pulse 82 06/22/22 09:52 Respiratory Rate 20 06/22/22 09:52 Respiratory Effort Normal, Non-Labored 06/22/22 10:43 Respiratory Depth Normal 06/22/22 10:43 Blood Pressure 131/96 H 06/22/22 09:52 Blood Pressure Position Sitting 06/22/22 09:52 Pulse Oximetry 98 06/22/22 09:52 Oxygen Delivery Method Room Air 06/22/22 09:52 Oxygen Flow Rate 0 06/22/22 09:52 Pain Level 0 06/22/22 09:52
[2022-06-22 11:33] VITALS: BP 130/88; O2SAT 98
== END 2022-06-22 11:35 | disposition home or self-care (01) ==
PROVIDERS: Emergency Provider Physician Assistant; PCP Nurse Practitioner Family
DX: J06.9 Acute upper respiratory infection, unspecified (principal); J45.909 Unspecified asthma, uncomplicated; E03.9 Hypothyroidism, unspecified
CPT/HCPCS: 99283; 71046; 99284

== ENCOUNTER 2022-07-15 15:48 | Outpatient (REF) | payer MEDICARE, MEDICAID, SELFPAY ==
[2022-07-15 13:50] LABS: HCT 44.4 % (36.0-46.0); HGB 14.1 g/dL (11.2-15.7); MCH 27.1 pg (27.0-33.0); MCHC 31.8 % (32.0-36.0); MCV 85 fL (80-95); MPV 10.6 fL (8.0-11.0); Platelet Count 260 10^3/uL (130-400); RBC 5.21 10^6/uL (3.93-5.22); RDW 13.2 % (11.7-14.6); WBC 6.39 10^3/uL (4.4-10.8)
[2022-07-15 14:47] LABS: ALT 40 U/L (14-59); AST 21 U/L (15-37); Albumin 3.6 g/dL (3.4-5.0); Alkaline Phosphatase 85 U/L (46-116); BUN 10 mg/dL (7-18); Bilirubin, Total 0.2 mg/dL (0.2-1.0); CREATININE 0.9 mg/dL (0.55-1.02); Calcium 8.8 mg/dL (8.5-10.1); Chloride 107 mmol/L (98-107); Glucose 102 mg/dL (74-106); Potassium 3.9 mmol/L (3.5-5.1); Sodium 142 mmol/L (136-145); TSH (W/Ref FT4) 0.98 uIU/mL (0.36-3.74); Total Protein 7.3 g/dL (6.4-8.2)
== END 2022-07-15 15:49 | disposition home or self-care (01) ==
LOC: NCHCN 15:48
PROVIDERS: PCP Nurse Practitioner Family; Visit Provider Nurse Practitioner Family
DX: R53.83 Other fatigue (principal); E03.9 Hypothyroidism, unspecified
CPT/HCPCS: 80053; 85027; 84443

== ENCOUNTER 2023-02-27 15:30 | Emergency (ER) | payer MEDICARE, MEDICAID, SELFPAY ==
[2023-02-27 15:42] VITALS: BP 182/90; PULSE 90; RESP 18; TEMP 36.6; O2SAT 100
--- NOTE | 2023-02-27 15:51 | ED.GENADUL_ITS ---
Discharge Plan Disposition Patient Disposition: Home Condition: Stable Discharge Details Clinical Impression: Abdominal pain of unknown cause Primary Care Provider: Elyse Harden ED Provider: Black Borrero Home Meds and New Rx's Prescriptions: Continued acetaminophen 325 mg capsule 325 mg PO ONCE PRN levonorgestrel-ethinyl estrad 0.1-20 mg-mcg tablet 1 tab PO DAILY Qty: 84 4RF Rx Instructions: Skip the placebo pills(the different color at the end of the pack) and start the next pack right away to skip your period. cyclobenzaprine 5 mg Tablet 5 mg PO PRN PRN Discharge Instructions Instructions: Abdominal Pain (ED) Additional Instructions: You were seen in the emergency department for your abdominal pain of uncertain cause, your CT scan shows a normal-sized appendix, there is no large ovarian cysts, there is no renal stones visualized, you did have a trace amount of blood in your urine so its possible you did pass a kidney stone. Otherwise there is no elevations of markers of infection, your D-dimer is negative indicating there is no clotting pathology in your GI vasculature, your lactate is normal meaning you are not septic. Your vaginal swabs for things like bacterial vaginosis or yeast or other vaginal pathogens is pending, as we discussed please follow-up with your primary care provider for possible pelvic ultrasound if your pain is still present on Wednesday. You may have a significantly strained abdominal muscle. Please use therapeutic dosing of Tylenol (acetamenophen) & Advil (ibuprofen) in an alternating fashion as follows: Take 1000mg of Tylenol every 6 hours without missing doses- that is 4 times per day. Detention in between the Tylenol dosings, take 400-600mg of Advil also on a 6 hour schedule, that is also 4 times per day. The daily maximum dosing of Tylenol is 4000mg, and the daily maximum dosing of Advil is 2400mg. This is safe to do for weeks. Please note that some common cold medications & prescription pain medications may contain acetamenophen and you need to read OTC drug labels and factor that in to maximum daily dosings. Please return to the ED for any increasing abdominal pain especially with intractable nausea vomiting, fever, dysuria, blood in the urine, constipation. Stand Alone Forms: Work Release Referrals: Elyse Harden [Primary Care Provider] - Discharge Data Discharge Date/Time-TO BE ENTERED AT DEPARTURE: 02/27/23 18:58 Medical Decision Making This dictation utilizes [id number] dictation software and may contain unedited grammatical errors. 37 y/o F presents to ED today with a chief complaint of suprapubic abdominal pain similar to past episodes of kidney stones, ongoing since last night, the patient has had 3 or 4 kidney stones over the past few years, states family history of renal stones. Denies fever, denies active vomiting endorses some mild nausea, denies abdominal surgical history, states pain is cramping in nature without any pelvic symptoms of vaginal bleeding, discharge, denies dysuria/hematuria. Patients' medical history: Obesity, hyperlipidemia, history of irregular menstrual cycles, history of kidney stones. Family and social history: FHx of renal stones in mother at least 15 stones lifetime. Pertinent exam findings / vital signs include suprapubic tenderness with McBurney's point tenderness without rebound tenderness, no CVA tenderness bilaterally, benign cardiopulmonary status, vital stable. Differential / pathologies of concern include renal stone, UTI, pyelonephritis, appendicitis, tubo-ovarian abscess, ovarian cyst or torsion, unlikely SBO, gastroenteritis. Diagnostic studies of: -CBC, CMP, Lipase, UA, Upreg, CT ABD/Pelvis wo, will reflex to w/contrast or U/S pelvic if most likely pathology of renal stone inconclusive. -no leukocytosis -CMP no abnormality -UA shows trace blood only -Upreg negative -CT has no acute pathology, chronic fat containing hernias x2 unchanged from priors. -added D-dimer, added self-swabs for wet mount, added lactate with negative work-up and exquisite tenderness, patient does take hormonal OCPs -lactate WNL -D-dimer neg -vaginal swabs pending Interventions of: -1L NS IVF, 1g IV APAP, 15mg IV Toradol. ED Course: Patient with significant history of renal stones presents with lower abdominal pain and feels like a stone is in her bladder. Her CBC and CMP show no acute abnormality and her UA shows trace blood, she is not , CT shows no acute pathology and to chronic fat-containing hernias, due to the patient's level of pain on exam I did add a D-dimer as she is on hormonal control which was negative, he added a lactate which was also negative, I am reassured that there is no acute emergent abdominal pathology occurring, I did send to vaginal swabs. It is possible that the patient has a severe abdominal muscle wall strain. My only other recommendation would be to have her follow-up with her primary care provider for possible ultrasound pelvic complete study on Wednesday. The patient is agreeable to this and will take maximal dosing Tylenol and ibuprofen in the meantime, strict return criteria for any developing fever, intractable nausea vomiting. Findings not consistent with large ovarian cyst or torsion, appendicitis, bowel obstruction, tubo-ovarian abscess, UTI, pyelonephritis, current kidney stone. Disposition of Abdominal Pain of Unknown Cause. Patient verbalized understanding of the plan and return to ED criteria and engaged in shared decision making. Medical Records Medical records reviewed: Yes I reviewed the patient's medical records. Imaging Data Radiologic Study: Imaging: CT Scan Radiologist's impression: vRad read shows a normal-appearing appendix, no renal or ureteral stones identified, no hydronephrosis, no free fluid in the pelvis, no abnormalities n oted to the ovaries and no large cyst seen, there are 2 chronic small fat- containing hernias that are unchanged from prior study Exam(s) CT ABDOMEN PELVIS WO EXAM: CT ABDOMEN PELVIS WO CLINICAL HISTORY: suprapubic/RLQ tenderness, hx renal stones. TECHNIQUE: Imaging Protocol: Axial computed tomography images with coronal and sagittal reformatted images were created and reviewed. COMPARISON: CT RENAL COLIC WO CONTRAST from 05/31/2017 FINDINGS: ABDOMEN: Lung Bases: Normal where visualized. Liver: Normal density. No measurable mass. Gallbladder and biliary tract: No radiodense calculus or biliary ductal dilation. Pancreas: Normal density, no abnormal calcifications or inflammatory process. Spleen: Normal. Kidneys: Normal size, contour and axis.No radiodense stones or obstructive uropathy. No masses seen. Adrenal glands: No mass is seen. Lymph nodes: Within normal limits. Abdominal Aorta: Abdominal portion non-dilated. PELVIS: Bladder:Symmetric distention, no gross wall thickening. Bowel: No obstruction or bowel wall thickening. Appendix is unremarkable. Peritoneal cavity: No ascites, collection or mesenteric inflammatory response. No free air. Reproductive organs: Unremarkable as visualized. Bones: Within normal limits. Soft Tissues: There is a small fat containing umbilical hernia. IMPRESSION: 1. No evidence of nephrolithiasis or obstructive uropathy. 2. No acute abdominal or pelvic process. Lab Data Lab results reviewed: Yes I reviewed the patient's lab results. Labs: 02/27/23 18:04 Vaginal Vaginitis Screen - Pending Laboratory Tests Range/Units 02/27/23 02/27/23 02/27/23 15:50 16:16 18:00 WBC (4.4-10.8) 10^3/uL 6.68 RBC (3.93-5.22) 10^6/uL 5.44 H Hgb (11.2-15.7) g/dL 15.2 Hct (36.0-46.0) % 47.0 H MCV (80-95) fL 86 MCH (27.0-33.0) pg 27.9 MCHC (32.0-36.0) % 32.3 RDW (11.7-14.6) % 12.7 Plt Count (130-400) 10^3/uL 302 MPV (8.0-11.0) fL 8.8 Immature Gran % 0.1 Neutrophils % 58.2 Lymphocytes % 33.1 Monocytes % 6.6 Eosinophils % 1.6 Basophils % 0.4 Nucleated RBC % (0.0-0.3) % 0.0 Absolute Neutrophils (1.2-6.7) 10^3/uL 3.88 Absolute Lymphocytes (1.2-3.4) 10^3/uL 2.21 Absolute Monocytes (0.1-0.8) 10^3/uL 0.44 Absolute Eosinophils (0.0-0.7) 10^3/uL 0.11 Absolute Basophils (0.0-0.2) 10^3/uL 0.03 D-Dimer (<500) ng/mlFEU 334 VBG Lactate (0.6-1.4) mmol/L 1.1 Sodium (136-145) mmol/L 140 Potassium (3.5-5.1) mmol/L 3.5 Chloride (98-107) mmol/L 106 Carbon Dioxide (21.0-32.0) mmol/L 27.9 Anion Gap (3-11) mmol/L 6.1 BUN (7-18) mg/dL 13 Creatinine (0.55-1.02) mg/dL 0.9 Est GFR (CKD-EPI 2020) (mL/min/1.73m2) 85.50 Glucose (74-106) mg/dL 96 Calcium (8.5-10.1) mg/dL 9.1 Total Bilirubin (0.2-1.0) mg/dL 0.2 AST (15-37) U/L 20 ALT (14-59) U/L 35 Alkaline Phosphatase (46-116) U/L 89 Total Protein (6.4-8.2) g/dL 8.2 Albumin (3.4-5.0) g/dL 3.8 Lipase (16-77) U/L 50 Urine Color (Yellow) Yellow Urine Clarity (Clear) Clear Urine pH (5-8) 6.0 Ur Specific [place] (1.005-1.025) 1.020 Urine Protein (Negative) mg/dL Negative Urine Ketones (Negative) mg/dL Negative Urine Blood (Negative) Trace-lysed H Urine Nitrite (Negative) Negative Urine Bilirubin (Negative) Negative Urine Urobilinogen (Up to 0.2) mg/dL 0.2 Ur Leukocyte Esterase (Negative) Negative Urine RBC (0-2) HPF 0-2 Urine WBC (0-5) HPF Negative Ur Epithelial Cells (Negative) HPF Negative Urine Crystals (Negative) HPF Negative Urine Bacteria (Negative) HPF Negative Urine Casts (Negative) LPF Negative Urine Mucus (Negative) Negative Ur Culture Indicated? No Urine Glucose (Negative) mg/dL Negative HPI General Date/Time Provider Initiated Documentation: 02/27/23 15:47 . HPI Narrative: 37 year-old female presents to ED today by POV/ambulating with a chief complaint of lower abdominal pain, localized suprapubic, feels like past episodes of kidney stones, feels it may be in her bladder with onset noted last night, with some nausea. Quality described as painful cramping in suprapubic area, mild to RLQ/LLQ, some epigastric pain with nausea, no radiation to abdominal surgical history, fever, cough, denies dysuria/hematuria, denies possibility of , denies active vomiting. Severity is described as 8/10. Palliating factors include nothing specific attempted. Provoking factors include nothing specific. Events leading up to the incident/Associated Symptoms: patient has had 3-4 kidney stones over the past few years. Patient not anticoagulated. Related Data Home Medications Medication Instructions Recorded Confirmed cyclobenzaprine 5 mg tablet 5 mg PO PRN PRN 10/03/20 02/27/23 acetaminophen 325 mg capsule 325 mg PO ONCE PRN 04/07/22 02/27/23 levonorgestrel-ethinyl estradiol 1 tab PO DAILY #84 tabs 04/07/22 02/27/23 0.1 mg-20 mcg tablet Previous Rx's Medication Instructions Recorded levonorgestrel-ethinyl estradiol 1 tab PO DAILY #84 tabs 04/07/22 0.1 mg-20 mcg tablet Allergies Allergy/AdvReac Type Severity Reaction Status Date / Time lamotrigine [From Lamictal] Allergy Severe face swells Unverified 07/07/22 12:58 aluminum hydroxide Allergy Intermediate Swelling/Ed Unverified 07/07/22 12:58 [From Mylanta] samantha calcium carbonate Allergy Intermediate Swelling/Ed Unverified 07/07/22 12:58 [From Mylanta] samantha magnesium carbonate Allergy Intermediate Swelling/Ed Unverified 07/07/22 12:58 [From Mylanta] samantha magnesium hydroxide Allergy Intermediate Swelling/Ed Unverified 07/07/22 12:58 [From Mylanta] samantha simethicone [From Mylanta] Allergy Intermediate Swelling/Ed Unverified 07/07/22 12:58 samantha cariprazine [From Vraylar] Allergy Other (See Unverified 07/07/22 12:58 Comment) benzoyl peroxide AdvReac Unknown Skin Rash Unverified 07/07/22 12:58 Barium used for barium AdvReac Intermediate Nausea Uncoded 07/07/22 12:58 swallow General Stated Complaint: Abd Prob INDER: 3 Review of Systems All systems reviewed & are unremarkable except as noted in HPI and below PFSH All Active Problems (Updated 02/27/23 @ 18:46 by PHIL Branham) Abdominal pain of unknown cause (Acute) Right carpal tunnel syndrome (Acute) Incontinence (Acute) Pelvic pain (Acute) Medical History (Updated 02/27/23 @ 18:46 by PHIL Branham) PTSD (post-traumatic stress disorder) Bipolar 1 disorder Obesity Hypothyroidism Hyperlipidemia Obstructive sleep apnea Jaw pain Foot pain, left History of irregular menstrual cycles Tinea corporis Breast lump Neuroma Low back pain Pain in left wrist History of kidney stones 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 Last CT scan was normal ~. ?? 2ndary to psychotropic medication. Migraine Asthma Depression Eating disorder Surgical History [place] teeth removed Family History Father Heart disease Hyperlipidemia Mother Diabetes Hyperlipidemia Thyroid condition Social History Smoking/Tobacco Use Status: Never Smoking risk assessment performed?: Yes Alcohol Intake: never Drug use: Never Substance use type: does not use Do you feel safe at home: Yes Do you feel safe in your relationship?: Yes Female Reproductive History Menstrual Age of Menarche: 15 Duration of menses: >10 days control method: abstinence History History 2 0 Para Hx # Term Pregnancies Multiple births Hx # Pregnancies Ectopic pregnancies AB induced Hx Number of Living Children AB spontaneous Exam Narrative Exam Narrative: GENERAL APPEARANCE: Well-nourished, non-toxic, awake and alert, atraumatic, no acute distress. SKIN: Warm, pink, dry, intact, without rashes/lesions/ulcerations. HEAD: Normocephalic, atraumatic, normal hair distribution for gender/age. EYES: Pupils PERRLA, EOMs intact without nystagmus, normal conjunctiva, no exudates on lids/lashes. ENT: Nares patent, no circumoral cyanosis, no facial swelling NECK: Supple, trachea midline, painless cervical ROM. LUNGS/CHEST: Lungs CTA bilaterally- no rhonchi/rales/wheezes diffusely, non- labored respirations, normal A/P diameter, symmetrical expansion, no chest wall deformity HEART (CV/PV): Regular rate and rhythm without murmur, no peripheral edema, no JVD. ABDOMEN: Soft, non-distended, no guarding, no CVA tenderness bilaterally to percussion, suprapubic tenderness, endorses some Rovsing's with palpation of RLQ/LLQ, McBurney's point tenderness without rebound tenderness, mild epigastric tenderness. MSK: Normal ROM, no swelling/deformity to bilateral UEs or LEs, moving all extremities without weakness, no cyanosis, spine midline without tenderness, normal curvature. NEURO: Mental Status AAOx4 - alert to person, place, time, events No facial droop, no forehead involvement. Motor: No focal weakness - strength 5/5 in bilateral UEs and LEs, proximal and distal, symmetric. Sensory: sensation intact to light touch globally. Gait normal: patient ambulated without ataxia into ED room. PSYCH: euthymic, cooperative, pleasant, appropriate speech Course Vital Signs Vital signs: Vital Signs Temperature 36.6 C 02/27/23 15:42 Pulse 90 02/27/23 15:42 Respiratory Rate 18 02/27/23 15:42 Blood Pressure 182/90 H 02/27/23 15:42 Pulse Oximetry 100 02/27/23 15:42 Temperature 36.6 C 02/27/23 15:42 Temperature Source Oral 02/27/23 15:42 Pulse 90 02/27/23 15:42 Respiratory Rate 18 02/27/23 15:42 Blood Pressure 182/90 H 02/27/23 15:42 Blood Pressure Position Sitting 02/27/23 15:42 Pulse Oximetry 100 02/27/23 15:42 Oxygen Delivery Method Room Air 02/27/23 15:42 Oxygen Flow Rate 0 02/27/23 15:42 Lab/Test Results Lab/Test Results: POC- Test(urine) Negative
--- NOTE | 2023-02-27 16:03 | DI.CT_ITS ---
Exam(s) CT ABDOMEN PELVIS WO EXAM: CT ABDOMEN PELVIS WO CLINICAL HISTORY: suprapubic/RLQ tenderness, hx renal stones. TECHNIQUE: Imaging Protocol: Axial computed tomography images with coronal and sagittal reformatted images were created and reviewed. COMPARISON: CT RENAL COLIC WO CONTRAST from 05/31/2017 FINDINGS: ABDOMEN: Lung Bases: Normal where visualized. Liver: Normal density. No measurable mass. Gallbladder and biliary tract: No radiodense calculus or biliary ductal dilation. Pancreas: Normal density, no abnormal calcifications or inflammatory process. Spleen: Normal. Kidneys: Normal size, contour and axis.No radiodense stones or obstructive uropathy. No masses seen. Adrenal glands: No mass is seen. Lymph nodes: Within normal limits. Abdominal Aorta: Abdominal portion non-dilated. PELVIS: Bladder:Symmetric distention, no gross wall thickening. Bowel: No obstruction or bowel wall thickening. Appendix is unremarkable. Peritoneal cavity: No ascites, collection or mesenteric inflammatory response. No free air. Reproductive organs: Unremarkable as visualized. Bones: Within normal limits. Soft Tissues: There is a small fat containing umbilical hernia. IMPRESSION: 1. No evidence of nephrolithiasis or obstructive uropathy. 2. No acute abdominal or pelvic process. RADIATION DOSE DELIVERED: Total DLP DATA REPOSITORY: All CT scans at this facility are submitted to the National Radiology Data Registry (NRDR) Dose Index Registry (DIR) with the [employer] (ACR). RADIATION OPTIMIZATION: All CT scans at this facility use at least one of these dose optimization te chniques: automated exposure control; mA and/or kV adjustment per patient size (includes targeted exa ms where dose is matched to clinical indication); or iterative reconstruction.
[2023-02-27 16:22] LABS: Abs Immature Grans 0.01 10^3/uL (0.0-0.06); Absolute Basophil Count 0.03 10^3/uL (0.0-0.2); Absolute Eosinophil Count 0.11 10^3/uL (0.0-0.7); Absolute Lymphocyte Count 2.21 10^3/uL (1.2-3.4); Absolute Monocyte Count 0.44 10^3/uL (0.1-0.8); Absolute Neutrophil Count 3.88 10^3/uL (1.2-6.7); Basophils % 0.4; Eosinophils % 1.6; HGB 15.2 g/dL (11.2-15.7); Immature Grans % 0.1; Lymphocytes % 33.1; MCH 27.9 pg (27.0-33.0); MCHC 32.3 % (32.0-36.0); MCV 86 fL (80-95); MPV 8.8 fL (8.0-11.0); Monocytes % 6.6; Neutrophils % 58.2; Platelet Count 302 10^3/uL (130-400); RBC 5.44 10^6/uL (3.93-5.22); RDW 12.7 % (11.7-14.6); RDW-SD 39.6 fL; WBC 6.68 10^3/uL (4.4-10.8)
[2023-02-27 16:23] VITALS: BP 182/90; PULSE 90; RESP 18; TEMP 36.6; O2SAT 100
[2023-02-27 16:32] LABS: Bilirubin Negative (Negative); Blood Trace-lysed (Negative); Clarity Clear (Clear); Glucose Negative (Negative); Ketones Negative (Negative); Leukocyte Esterase Negative (Negative); Nitrite Negative (Negative); Urobilinogen 0.2 mg/dL (Up to 0.2)
[2023-02-27 16:34] LABS: Bacteria Negative HPF (Negative); C & S Indicated? No; Casts Negative LPF (Negative); Crystals Negative HPF (Negative); Epithelial Cells Negative HPF (Negative); Mucus Negative (Negative); RBC 0-2 HPF (0-2); WBC Negative HPF (0-5)
[2023-02-27 16:38] LABS: ALT 35 U/L (14-59); AST 20 U/L (15-37); Albumin 3.8 g/dL (3.4-5.0); Alkaline Phosphatase 89 U/L (46-116); Anion Gap 6.1 mmol/L (3-11); BUN 13 mg/dL (7-18); Bilirubin, Total 0.2 mg/dL (0.2-1.0); CO2 27.9 mmol/L (21.0-32.0); CREATININE 0.9 mg/dL (0.55-1.02); Calcium 9.1 mg/dL (8.5-10.1); Chloride 106 mmol/L (98-107); Glucose 96 mg/dL (74-106); Lipase 50 U/L (16-77); Potassium 3.5 mmol/L (3.5-5.1); Sodium 140 mmol/L (136-145); Total Protein 8.2 g/dL (6.4-8.2)
[2023-02-27] MEDS: ACETAMINOPHEN 1,000 MG/100 ML BTL 400 MG IVPB (16:39)
[2023-02-27] MEDS: Normal Saline 1,000 ML 1000 ML IV (16:41)
[2023-02-27] MEDS: Ketorolac 15 MG/ML VIAL IVP (16:41)
--- NOTE | 2023-02-27 17:10 | DI.VRAD_ITS ---
PROCEDURE INFORMATION: Exam: CT Abdomen And Pelvis Without Contrast Exam date and time: 02/27/2023 4:28 PM Age: 37 years old Clinical indication: Pain; Other: Suprapubic/rlq tenderness, HX renal stones TECHNIQUE: Imaging protocol: Computed tomography of the abdomen and pelvis without contrast. COMPARISON: CT RENAL COLIC WO CONTRAST 05/31/2017 7:49 PM FINDINGS: Lungs: There is mild scarring/subsegmental atelectasis within the medial segment of the right middle lobe. Liver: Normal. No mass. Gallbladder and bile ducts: The gallbladder is contracted and is not well evaluated, but there is no evidence for acute gallbladder inflammation. No gallstones are identified. There is no biliary ductal dilatation. Pancreas: Normal. No ductal dilation. Spleen: Normal. No splenomegaly. Adrenal glands: Normal. No mass. Kidneys and ureters: No renal or ureteral stones are identified. There is no hydronephrosis or hydroureter. Stomach and bowel: There is no evidence of small or large bowel inflammation. There is no evidence for bowel obstruction. Appendix: The appendix is well visualized and appears normal. Intraperitoneal space: There is no evidence of free intraperitoneal fluid. There is no free intraperitoneal air. Vasculature: Unremarkable. No abdominal aortic aneurysm. Lymph nodes: Unremarkable. No enlarged lymph nodes. Urinary bladder: No bladder stones are identified. Reproductive: The uterus is retroverted. Bones/joints: There are multilevel mild degenerative changes of the lower thoracic and lumbar spine. No acute fractures are identified. Soft tissues: Again noted is a 2.0 x 2.2 cm fat containing periumbilical hernia as well as a smaller tiny fat containing umbilical hernia. IMPRESSION: 1. No urinary tract stones or evidence of urinary tract obstruction. 2. No acute process within the abdomen or pelvis identified. 3. Small fat containing periumbilical hernia as well as a tiny fat containing umbilical hernia, unchanged. Dictated and Authenticated by: Jv Baugh MD. Ordering:ABBEY Cleaning MD
[2023-02-27 18:05] LABS: Lactate 1.1 mmol/L (0.6-1.4)
[2023-02-27 18:34] LABS: D-Dimer 334 ng/mlFEU (<500)
[2023-02-27 18:58] VITALS: BP 137/91; PULSE 66; RESP 14; TEMP 36.8; O2SAT 99
[2023-03-02 13:57] LABS: Chlamydia Result Negative (Negative); GC Result Negative (Negative)
== END 2023-02-27 18:58 | disposition home or self-care (01) ==
PROVIDERS: Emergency Provider Physician Assistant; PCP Nurse Practitioner Family
DX: R10.33 Periumbilical pain (principal); R11.0 Nausea; E78.5 Hyperlipidemia, unspecified; E03.9 Hypothyroidism, unspecified; Z87.442 Personal history of urinary calculi
CPT/HCPCS: 36415; 80053; 82962; 83690; 87491; 87591; 96361; 96374; 96375; 99284; 74176; 81003; 81015; 83605; 85025; 85379; 87480; 87510; 87660; J0131; J1885

== ENCOUNTER 2023-06-03 15:10 | Outpatient (REF) | payer MEDICARE, MEDICAID, SELFPAY ==
[2023-06-03 17:29] LABS: Vitamin B12 289 pg/mL (193-986)
[2023-06-08 15:36] LABS: TSH (W/Ref FT4) < 0.01 uIU/mL (0.36-3.74)
[2023-06-08 15:55] LABS: FREE T4 2.67 ng/dL (0.76-1.46)
== END 2023-06-03 15:11 | disposition home or self-care (01) ==
LOC: NCHCN 15:10
PROVIDERS: PCP Nurse Practitioner Family; Visit Provider Nurse Practitioner Family
DX: G62.9 Polyneuropathy, unspecified (principal); E03.9 Hypothyroidism, unspecified
CPT/HCPCS: 82607; 84439; 84443

== ENCOUNTER 2023-07-22 05:04 | Outpatient (CLI) | payer MEDICARE, MEDICAID, SELFPAY ==
--- NOTE | 2023-07-22 11:18 | TELEFU_ITS ---
Date of service: 07/22/23 Time of Service: 10:00 Nutrition Note NOTE: Lesley in for referred nutrition visit regarding wt mgt (obesity E66.9). She staes she is active at work but sedentary at home with no scheduled/formal exercise. Lives with parents - lesley does the shopping and a lot of the meal prep but finds other family preferences influencing her choices. Tends to skip or have very light breakfast and heavier meals later in the day. Describes herself as in the middle when it comes to picky eating - definitely choosy but finds herself to be more accepting of foods than other family members. We discussed the habits that will make the biggest impact on her weight mgt go als today: -Fiber: we discussed plantbased eating for increased fiber and suggested periodically tracking to ensure that she is consistently getting minimum of 25g per day -Added sugar: we discussed where to find on labels and that 1 tsp most sweeteners = 4g added sugar. Discussed goal of tracking periodically and checking her intake against goal of <30g per day -Protein: Encouraged regular meals to meet above goals, as well as protein goal of ~100g per day and choosing more plant sources like beans/lentils, nuts/seeds, whole soy and high protein grains like oats, quinoa. -water: goal of 2Liters per day -planned exercise: encouraged strength training to help increase metabolism as well as any type of increased activity. We looked at meal planning and setting up repeatable meal set-ups for the daytime and since dinner is thefamily meal, to leave a little more flexible in planning. Lesley took my card to contact me if needing any more follow up visits, resources or quick help with menu planning Time Spent in Nutritional Counseling and Treatment: 60 minutes
== END 2023-07-22 05:05 | disposition home or self-care (01) ==
PROVIDERS: PCP Nurse Practitioner Family; Visit Provider Dietitian, Registered
DX: E66.9 Obesity, unspecified (principal); Z71.3 Dietary counseling and surveillance
CPT/HCPCS: 00123; 97802

== ENCOUNTER 2023-12-03 16:54 | Outpatient (REF) | payer MEDICARE, MEDICAID, SELFPAY ==
--- OUTSIDE RECORDS SUMMARY | 2023-12-03 17:03 | XMS_ITS | Encounter Summary ---
Author Organization [facility] Address [address] [place] [address] Care Team Providers Care Web Services Architect Name Role Phone Unknown, Provider Primary Care Provider [phone] Encounter Details Date Type Department Care Team (Late st Contact Info) Description 02/28/2023 Lab Requisition [facility] Pathology & Laboratory Medicine - [address] [address] Outr Resulting Lab, Provider Social History Tobacco Use Types Packs/Day Years Used Date Smoking Tobacco: Never Assessed Interpersonal Safety Answer Date Record ed Physically Hurt Never 11/05/2019 Verbally Threaten Not on file 11/05/2019 Sex and Gender Information Value Date Recorded Sex Assigned at Not on file Gender Identity Not on file Sexual Orientation Not on file documented as of this encounter Plan of Treatment Not on file documented as of this encounter Procedures Procedure Name Priority Date/Time Associated Diagnosis Comments CHLAMYDIA/N. GONORRHOEAE AMPLIFIED NUCLEIC ACID Routine 02/27/2023 18:04 EST documented in this encounter Results * CHLAMYDIA/N. GONORRHOEAE AMPLIFIED RNA (02/27/2023 18:04 EST) Neisseria gonorrhoeae Result Negative Negative 03/02/2023 13:52 EST [facility] Chlamydia trachomatis Result Negative Negative 03/02/2023 13:52 EST [facility] Swab VAGINAL STRUCTURE / Unknown 02/27/2023 18:04 EST 03/01/2023 16:43 EST Provider Outr Resulting Lab MICROBIOLOGY - GENERAL ORDERABLES [facility] [address] [place] [address] documented in this encounter Visit Diagnoses Not on filedocumented in this encounter Care Teams Web Services Architect Relationship Specialty Start Date End Date Unknown, Provider, PCP - General 11/07/17 documented as of this encounter
--- OUTSIDE RECORDS SUMMARY | 2023-12-03 17:03 | XMS_ITS | Encounter Summary ---
Author Organization [facility] Address [address] [place] [address] Care Team Providers Care Scroll Shear Operator Name Role Phone Md HEIDY Carrasquillo Primary Care Provider Unavaila ble Encounter Details Date Type Department Care Team (Late st Contact Info) Description 08/07/2014 Results Only [facility] [phone] Jessica Cee Marley, SOFT METALS HAND ENGRAVER [address] [facility] [address] [place] [id number] Social History Tobacco Use Types Packs/Day Years Used Date Smoking Tobacco: Never Assessed Sex and Gender Information Value Date Recorded Sex Assigned at Not on file Gender Identity Not on file Sexual Orientation Not on file documented as of this encounter Plan of Treatment Not on file documented as of this encounter Procedures Procedure Name Priority Date/Time Associated Diagnosis Comments PAP TEST- RESULT ONLY Routine 08/07/2014 0:00 EDT documented in this encounter Results * PAP TEST- RESULT ONLY (08/07/2014 0:00 EDT) Pathology Report: CYTOPATHOLOGY REPORT Reports generated via electronic interface contain original data; however they are lacking the format of the original report. Caution should be taken when reading/interpreti ng unformatted reports. Name: ? TOYIN ARGUETA ? Accession #: ? [id number] : ? 1985 (Age: 29) ??F ?Collect Date: ? 08/07/2014 Location: ? [facility] ? Receive Date: ? 08/10/2014 Provider: ?JESSICA CEE SOFT METALS HAND ENGRAVER Copy to: ? Specimen/Source: ?Pap Test, Endocervix, ThinPrep Imaging System with manual evaluation Last Menstrual Period: ? 08/07/14 ? SPECIMEN ADEQUACY ? Satisfactory for Evaluation - transformation zone component present - scant squamous epithelial component - obscuring contamination, possibly lubricant GENERAL CATEGORIZATION ? Negative for Intraepithelial Lesion or Malignancy ? Document reviewed and electronically signed by: ? CK Ochoa(ASCP) ? Report Date: ??08/20/2014 08:54 End of Report [facility] 08/07/2014 08/10/2014 Jessica Cee APRN PATHOLOGY ORDERAB LES [facility] [address] [place] [address] documented in this encounter Visit Diagnoses Not on filedocumented in this encounter Care Teams Scroll Shear Operator Relationship Specialty Start Date End Date Md Carrasquillo MD PCP - General 12/23/09 11/06/17 documented as of this encounter
--- OUTSIDE RECORDS SUMMARY | 2023-12-03 17:03 | XMS_ITS | Encounter Summary ---
Author Organization [facility] Address [facility] [place] [address] Care Team Providers Care Subway Conductor Name Role Phone Anny Willoughby MD Primary Care Provider [phone] Encounter Details Date Type Department Care Team (Late st Contact Info) Description 03/17/2011 9:26 AM EST - 03/17/2011 11:59 PM EST Hospital Encounter MRI at [facility] [place] [address] Social History Tobacco Use Types Packs/Day Years Used Date Smoking Tobacco: Never Smokeless Tobacco: Never Alcohol Use Standard Drinks/Week Comments No 0 (1 standard drink = 0.6 oz pur e alcohol) Sex and Gender Information Value Date Recorded Sex Assigned at Not on file Gender Identity Not on file Sexual Orientation Not on file documented as of this encounter Last Filed Vital Signs Vital Sign Reading Time Taken Comments Blood Pressure - - Pulse - - Temperature - - Respiratory Rate - - Oxygen Saturation - - Inhaled Oxygen Concentration - - Weight 90.7 kg (200 lb) 03/17/2011 10:29 AM EST Height - - Body Mass Index - - documented in this encounter Medications at Time of Discharge Medication Sig Dispensed Refills Start Date End Date vitamin E 400 unit capsule Take 400 Units by mouth daily. PHENAZOPYRIDINE HCL (AZO ORAL) Take by mouth. UNABLE TO FIND Stress tab dietary supplement OXcarbazepine (TRILEPTAL) 600 mg tablet Take 1,200 mg by mouth every morning. documented as of this encounter Miscellaneous Notes * Miscellaneous - Provider, Scanning - 03/24/2011 9:52 AM EST documented in this encounter Plan of Treatment Not on file documented as of this encounter Procedures Procedure Name Priority Date/Time Associated Diagnosis Comments MRI BRAIN WWO CONTRAST (GENERIC) Routine 03/17/2011 10:40 AM EST documented in this encounter Results * MRI BRAIN WITH/WO CONTRAST (03/17/2011 10:40 AM EST) Anatomical Region Laterality Modality Head Magnetic Resonan ce 03/17/2011 10:4 0 AM EST Impressions 03/18/2011 10:05 AM EST IMPRESSION: ?? Essentially normal MRI of the brain; specifically, no evidence for pituitary lesion. ? Film and interpretation reviewed by the attending Narrative 03/18/2011 10:05 AM EST MRI OF THE BRAIN WITH AND WITHOUT CONTRAST, 03/17/11: ?? CLINICAL HISTORY: ??Two-year followup for possible hypermetabolic pituitary gland. ?? COMPARISON: None. ?? TECHNIQUE: MRI of the brain performed before and after the intravenous administration of 19 cc Magnevist per dynamic pituitary protocol. ?? FINDINGS: Pituitary notable for slight convex contour of the upper margin. ??No evidence for pituitary mass. ??Specifically, there is normal perfusion on dynamic phase imaging and normal postcontrast enhancement. ??No evidence for restricted diffusion or areas of abnormal FLAIR signal within the brain. ?? Ventricles are normal in size and caliber. ?? Procedure Note Aashish García MD - 03/18/2011 MRI OF THE BRAIN WITH AND WITHOUT CONTRAST, 03/17/11: CLINICAL HISTORY: Two-year followup for possible hypermetabolic pituitary gland. COMPARISON: None. TECHNIQUE: MRI of the brain performed before and after the intravenous administration of 19 cc Magnevist per dynamic pituitary protocol. FINDINGS: Pituitary notable for slight convex contour of the upper margin.No evidence for pituitary mass. Specifically, there is normal perfusion on dynamic phase imaging and normal postcontrast enhancement. No evidencefor restricted diffusion or areas of abnormal FLAIR signal within the brain. Ventricles are normal in size and caliber. IMPRESSION IMPRESSION: Essentially normal MRI of the brain; specifically, no evidence forpituitary lesion. Film and interpretation reviewed by the attending Brenden John MD [facility] MRI ORDERABLES documented in this encounter Visit Diagnoses Not on filedocumented in this encounter Administered Medications Inactive Administered Medications - up to 3 most recent administrations Medication Order MAR Action Action Date Dose Rate Site gadopentetate dimeglumine (MAGNEVIST) 10 mmol/20 mL (469.01 mg/mL) injection 18.14 mL 18.14 mL (0.2 mL/kg/dose ? 90.7 kg), Intravenous, ONCE PRN, 1 dose, Starting on Wed03/17/11 at 1030, Until Wed03/17/11 at 1033, Per Protocol, Routine Given 03/17/2011 10:33 AM EST 19 mLs documented in this encounter Care Teams Subway Conductor Relationship Specialty Start Date End Date Anny Willoughby MD [address] [place] [address] PCP - General 02/25/10 documented as of this encounter
--- OUTSIDE RECORDS SUMMARY | 2023-12-03 17:03 | XMS_ITS | Encounter Summary ---
Author Organization [facility] Address [facility] [place] [address] Care Team Providers Care Emts Name Role Phone Anny Willoughby MD Primary Care Provider Reason for Visit * Reason Comments Increased Prolactin Level Encounter Details Date Type Department Care Team ([facility] st Contact Info) Description 03/17/2011 11:00 AM EST Office Visit Neurosurgery at [facility] [place] [address] CLINIC, Brenden Lozano MD [facility] [place] [address] [place] [address] Elevated prolactin level (Primary Dx) Discharge Disposition: Home Social History Tobacco Use Types Packs/Day Years [...] Sign Reading Time Taken Comments Blood Pressure 144/75 03/17/2011 11:19 AM EST Pulse 86 03/17/2011 11:19 AM EST Temperature - - Respiratory Rate - - Oxygen Saturation - - Inhaled Oxygen Concentration - - Weight 83.9 kg (185 lb) 03/17/2011 11:19 AM EST Height 160 cm (5' 3) 03/17/2011 11:19 AM EST Body Mass Index 32.77 03/17/2011 11:19 AM EST documented in this encounter Progress Notes * Ajith Nguyen MD - 03/17/2011 11:46 AM EST Date: March 17, 2011. Ms. Argueta is a 25-year-old female who is seen in followup for hyperprolactinemia. She has been followed for these elevated prolactin levels with concern of whether there could be a pituitary lesion causing the elevations. Concern was that the elevations were actually related to her Risperdal that she was taking. When she went off the Risperdal, her galactorrhea improved and her prolactin levels decreased significantly. Since her last visit, she reports no further trouble with galactorrhea, as she has been off the Risperdal. She has had no other concerning symptoms, visual changes, and no neurologic changes. Physical Exam: She is alert and appropriate with fluid speech. PERRL. Visual rodriguez are full to confrontation bilaterally. EOMI. Sensation is intact to light touch throughout distributions bilaterally. Face is symmetric. Palate and tongue are midline. Hearing is intact to bilateral finger rub testing. Shoulder shrug strength is full bilaterally. Strength in both her upper and lower extremities is full bilaterally. She has intact light touch sensation throughout all four extremities. Her gait is narrow based and steady. Imaging: MRI shows, again, stable imaging of the pituitary, which is approximately 10 mm and is within the upper range of normal for pituitary size. There is no asymmetry or signs concerning for a mass. Assessment and Plan: Ms. Argueta is a 25-year-old female who is seen in followup for her hyperprolactinemia. At this point, we do not feel that this has been caused by pituitary prolactinoma, but rather by the Risperdal that she had been taking in the past. Her symptoms have resolved off the Risperdal, and she remains neurologically intact on exam. The pituitary remains within normal expected size range. We have told her that at this point she can follow up with us on an as-needed basis, and there is no need for further surveillance MRIs unless she were to develop additional symptoms in the future. This plan was formulated in discussion with Dr. John. documented in this encounter Plan of Treatment Not on file documented as of this encounter Procedures Procedure Name Priority Date/Time Associated Diagnosis Comments PROLACTIN Routine 03/17/2011 12:07 PM EST documented in this encounter Results * PROLACTIN (03/17/2011 12:07 PM EST) Prolactin 7.7 4.8 - 23.3 ng/mL TEO SWAIN Blood specimen (specimen) 03/17/2011 12:07 PM EST 03/17/2011 12:12 PM EST Brenden John MD CHEMISTRY ORDERABLES TEO SWAIN documented in this encounter Visit Diagnoses Diagnosis Elevated prolactin level- Primary Other and unspecified anterior pituitary hyperfunction documented in this encounter Care Teams Emts Relationship Specialty Start Date End Date Anny Willoughby MD [address] [place] [address] PCP - General 02/25/10 documented as of this encounter
--- OUTSIDE RECORDS SUMMARY | 2023-12-03 17:03 | XMS_ITS | Clinical Summary ---
Author Organization [facility] Address [facility] [place] [address] Care Team Providers Care Campaign Director Name Role Phone Anny Willoughby MD Primary Care Provider [phone] Allergies Active Allergy Reactions Criticality Noted Date Comments Aluminum Hydroxide Unknown Calcium Carbonate Unknown Lamotrigine Hives,Nausea And Vomiting 1 Magnesium Hydroxide Unknown Simethicone Unknown Medications Medication Sig Dispensed Refills Start Date End Date Status vitamin E 400 unit capsule Take 400 Units by mouth daily. Active PHENAZOPYRIDINE HCL (AZO ORAL) Take by mouth. Active UNABLE TO FIND Stress tab dietary supplement Active OXcarbazepine (TRILEPTAL) 600 mg tablet Take 1,200 mg by mouth every morning. 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 Social History Tobacco Use Types Packs/Day Years Used Date Smoking Tobacco: Never Smokeless Tobacco: Never Alcohol Use Standard Drinks/Week Comments No 0 (1 standard drink = 0.6 oz pur e alcohol) Sex and Gender Information Value Date Recorded Sex Assigned at Not on file Gender Identity Not on file Sexual Orientation Not on file Last Filed Vital Signs Vital Sign Reading [...] Mass Index 32.77 03/17/2011 11:19 AM EST Plan of Treatment Health Maintenance Due Date Last Done Comments HIV screen 06/18/2005 Hepatitis C Screening 06/18/2005 Hepatitis B vaccine (0-59 yrs) (1) 06/18/2006 Tdap adult 06/18/2006 Tetanus vaccine 06/18/2006 HPV test 06/18/2017 PAP Smear 06/18/2017 Covid-19 Vaccine ( - 2022- season) 2022 Influenza (Flu) vaccine (1 o f 1 - Influenza standard series) 12/05/2023 Care Teams Campaign Director Relationship Specialty Start Date End Date Anny Willoughby MD [address] [place] [address] PCP - General 02/25/10
--- OUTSIDE RECORDS SUMMARY | 2023-12-03 17:03 | XMS_ITS | Encounter Summary ---
Author Organization [facility] Address [address] [place] [address] Care Team Providers Care Numerical Control Lathe Operator Name Role Phone Md HEIDY Carrasquillo Primary Care Provider Unavaila ble Encounter Details Date Type Department Care Team (Late st Contact Info) Description 11/03/2017 Results Only [facility] [phone] Valeriy Cobos, [facility] [address] Social History Tobacco Use Types Packs/Day Years Used Date Smoking Tobacco: Never Assessed Sex and Gender Information Value Date Recorded Sex Assigned at Not on file Gender Identity Not on file Sexual Orientation Not on file documented as of this encounter Plan of Treatment Not on file documented as of this encounter Procedures Procedure Name Priority Date/Time Associated Diagnosis Comments SURGICAL PATHOLOGY Routine 11/03/2017 16 :19 EDT documented in this encounter Results * SURGICAL PATHOLOGY (11/03/2017 16:19 EDT) Pathology Report: SURGICAL PATHOLOGY REPORT Reports generated via electronic interface contain original data; however they are lacking the format of the original report. Caution should be taken when reading/interpreting unformatted reports. Name: ? TOYIN ARGUETA ? Accession #: ? [id number] ? : ? 1985 (Age: 32) ??F ? Collect Date: ? 11/03/2017 ? Location: ? [facility] ? Receive Date: ? 11/04/2017 ? Provider: VALERIY MARTINEZ JACQUARD PLATE MAKER-BC Copy to: ? Final Pathologic Diagnosis: SKIN OF FOOT, SIDE OF RIGHT, PUNCH BIOPSY: - Dermatophytosis (tinea pedis). ?? Microscopic Description: Sections consist of a small punch biopsy of skin to the deep reticular dermis. The stratum corneum has scale crust. ??The epidermis is mildly acanthotic and shows reactive changes. ??The dermis is marked by a superficial perivascular infiltrate that is composed primarily of lymphomononuclear cells although rare neutrophils and eosinophils are noted. ??There is erythrocyte extravasation. ??On sections prepared with PAS-amylase stain, numerous fungal organisms (morphologically consistent with dermatophyte) are evident. ??(Dr. Thompson)/rust Document reviewed and electronically signed by: GILDA THOMPSON MD Report ??Date: 11/08/2017 12:08 By the signature above, the attending physician certifies that he/she has personally conducted a gross and/or microscopic examination of the described specimens and rendered or confirmed the above diagnosis. Specimen(s) Received: 2.0 mm side of right foot punch biopsy Clinical History: Rash inside of right foot; did not respond to corticosteroid creams Gross Description: ? Received in formalin labelled with proper patient identification (initials F, K) and punch biopsy 2.0 mm side of R foot is a punch biopsy of mills-white skin (0.2 cm in diameter and 0.3 cm in thickness). Submitted intact in 1. PHIL Lozano (ASCP) 11/04/2017 4:36 PM End of Report [facility] 11/03/2017 16:1 9 EDT 11/04/2017 16:19 EDT Valeriy Cobos [facility]- PATHOLOGY ORDERA [facility] [address] [place] [address] documented in this encounter Visit Diagnoses Not on filedocumented in this encounter Care Teams Numerical Control Lathe Operator Relationship Specialty Start Date End Date Md Carrasquillo MD PCP - General 12/23/09 11/06/17 documented as of this encounter
--- OUTSIDE RECORDS SUMMARY | 2023-12-03 17:03 | XMS_ITS | Encounter Summary ---
Author Organization [facility] Address [address] [place] [address] Care Team Providers Care Baked Goods Stock Clerk Name Role Phone Md HEIDY Carrasquillo Primary Care Provider Unavaila ble Encounter Details Date Type Department Care Team (Late st Contact Info) Description 12/20/2009 Results Only [facility] Medicine [address] [address] Anny Willoughby MD [address] [place] [address] Social History Tobacco Use Types Packs/Day Years Used Date Smoking Tobacco: Never Assessed Sex and Gender Information Value Date Recorded Sex Assigned at Not on file Gender Identity Not on file Sexual Orientation Not on file documented as of this encounter Plan of Treatment Not on file documented as of this encounter Procedures Procedure Name Priority Date/Time Associated Diagnosis Comments CYTOPATHOLOGY Routine 12/20/2009 0:00 EDT documented in this encounter Results * CYTOPATHOLOGY (12/20/2009 0:00 EDT) Pathology Report: CYTOPATHOLOGY REPORT ? Reports generated via electronic interface contain original data; ? however they are lacking the format of the original report. ? Caution should be taken when reading/interpreti ng unformatted reports. ? Name: ? FLUM, TOYIN ? Accession #: ? [id number] ? : ? 1985 (Age: 24) ??F ?Collect Date: ? 12/20/2009 ? Location: ? [facility] ? Receive Date: ? 12/23/2009 ? Provider: ?ANNY FINE MD ? Copy to: ? Specimen/Source: ?Pap Test, Endocervix, ThinPrep Imaging System with ? manual evaluation ? Last Menstrual Period: ? 8/24/10 ? Other: ? HPVA - HPV testing requested if ASC-US on the current ThinPrep Pap test. ? SPECIMEN ADEQUACY ? Satisfactory for Evaluation ? - transformation zone component present ? GENERAL CATEGORIZATION ? Negative for Intraepithelial Lesion or Malignancy ? Document reviewed and electronically signed by: ? Mary L. Duran, MD ? Report Date: ??12/31/2009 09:08 ? End of Report ? [facility] 12/20/2009 12/23/2009 Anny Willoughby MD PATHOLOGY ORDERABLES Performing Organization Address City/State/[facility] Co de Phone Number [facility] [address] [place] [address] documented in this encounter Visit Diagnoses Not on filedocumented in this encounter Care Teams Baked Goods Stock Clerk Relationship Specialty Start Date End Date Md Carrasquillo MD PCP - General 12/23/09 11/06/17 documented as of this encounter
--- OUTSIDE RECORDS SUMMARY | 2023-12-03 17:03 | XMS_ITS | Encounter Summary ---
Author Organization [facility] Address [address] [place] [address] Care Team Providers Care Wood Preserving Plant Laborer Name Role Phone Md HEIDY Carrasquillo Primary Care Provider Unavaila ble Encounter Details Date Type Department Care Team (Latest Contact Info) Description 11/03/2017 10:22 EDT - 11/03/2017 23:59 EDT Hospital Encounter [address] [address] Unknown, ProviderMD Discharge Disposition: Home or Self Care Social History Tobacco Use Types Packs/Day Years Used Date Smoking Tobacco: Never Assessed Sex and Gender Information Value Date Recorded Sex Assigned at Not on file Gender Identity Not on file Sexual Orientation Not on file documented as of this encounter Discharge Disposition Disposition Code Departure Means Destination Home or Self Detention documented in this encounter Plan of Treatment Not on file documented as of this encounter Visit Diagnoses Not on filedocumented in this encounter Care Teams Wood Preserving Plant Laborer Relationship Specialty Start Date End Date Md Carrasquillo MD PCP - General 12/23/09 11/06/17 documented as of this encounter
--- OUTSIDE RECORDS SUMMARY | 2023-12-03 17:03 | XMS_ITS | Encounter Summary ---
Author Organization [facility] Address [address] [place] [address] Care Team Providers Care Director Of Strategic Initiatives Name Role Phone Unknown, Provider Primary Care Provider [phone] Encounter Details Date Type Department Care Team (Late st Contact Info) Description 04/08/2022 Lab Requisition [facility] Pathology & Laboratory Medicine - [address] [address] Zoë Tyler MD [address] [place] [phone] Encounter for other general examination Social History Tobacco Use Types Packs/Day Years [...] Name Priority Date/Time Associated Diagnosis Comments PAP TEST Today 04/07/2022 16:20 EST Encounter for other general examination HPV GENOTYPES 16 AND 18/45 Today 04/07/2022 16:20 EST Encounter for other general examination HPV DNA DETECTION WITH GENOTYPING, PCR Today 04/07/2022 16:20 EST Encounter for other general examination documented in this encounter Results * HPV GENOTYPES 16 AND 18/45 (04/07/2022 16:20 EST) HPV High Risk type 16, PCR Negative Negative 04/21/2022 16:23 [facility] HPV18/45 RNA (HPV18/45) Negative Negative 04/21/2022 16:23 [facility] Papanicolaou smear specimen (specimen) CERVIX UTERI STRUCTURE / Unknown 04/07/2022 16:20 EST 04/15/2022 9:54 EST Zoë Tyler MD MICROBIOLOGY - GENER AL ORDERABLES Performing Organization Address [facility] [[email or web address]] de Phone Number [facility] [address] [place] [address] * (ABNORMAL) HUMAN PAPILLOMAVIRUS (HPV) DETECTION-HIGH RISK TYPES (04/07/2022 16:20 EST) HPV other High Risk types, PCR Positive( A) Negative 04/22/2022 9:17 [facility] Comment:E6 OR E7 mRNA from o ne or more types of HPV types 16,18,31,33,35,39,45,51,52,56,58,59,66, and 68 is detected by automotive professional mediated amplification. High and intermediate risk HPV types are associated with most squamous intraepithelial lesions and cervical cancers. Papanicolaou smear specimen (specimen) CERVIX UTERI STRUCTURE / Unknown 04/07/2022 16:20 EST 04/15/2022 9:54 EST Zoë Tyler MD MICROBIOLOGY - GENER AL ORDERABLES Performing Organization Address [facility] Co de Phone Number [facility] [address] [place] [address] * PAP TEST (04/07/2022 16:20 EST) Specimens A. Cervix and/or Endocervix , ThinPrep Imaging System with Manual Evaluation 04/22/2022 9:17 [facility] Specimen Adequacy Satisfactory for Evaluation - transformation zone component present 04/22/2022 9:17 [facility] General Categorization Negative for intraepithelial lesion or malignancy 04/22/2022 9:17 [facility] Descriptive Diagnosis Reactive cellular changes associated with inflammation present (includes repair). 04/22/2022 9:17 [facility] Attestation By the signature below, the attending physician certifies that they have personally conducted a gross and/or microscopic examination of the described specimens and rendered or confirmed the above diagnosis. 04/22/2022 9:17 [facility] at 0917 Clinical History See below 04/22/19 9:17 [facility] HPV The result for the Human Papillomavirus (HPV) Detection-High Risk Types is Positive . E6 OR E7 mRNA from one or more types of HPV types 16,18,31,33,35,39 ,45,51,52,56,58,5 9,66, and 68 is detected by automotive professional mediated amplification. High and intermediate risk HPV types are associated with most squamous intraepithelial lesions and cervical cancers. Testing was performed on specimen [id number] and was resulted on 04/16/2022 1308 EST by ANH, LAB INSTRUMENT RESULTS IN 04/22/2022 9:17 [facility] Genotyping 16 & 18/45 The results for the HPV Genotypes 16 and 18/45 are Negative for the HPV16 RNA and Negative for the HPV18/45 RNA (HPV18/45). Testing was performed on specimen [id number] and was resulted on 04/21/2022 1622 EST by ANH, LAB INSTRUMENT RESULTS IN 04/22/2022 9:17 [facility] Performing Lab [facility] 04/22/2022 9:17 [facility] Scanned Images 04/22/2022 9:17 [facility] Papanicolaou smear specimen (specimen) CERVIX UTERI STRUCTURE / Unknown 04/07/2022 16:20 EST 04/08/2022 9:48 EST Zoë Tyler MD PATHOLOGY ORDERABLES [facility] [address] [place] [address] documented in this encounter Visit Diagnoses Diagnosis Encounter for other general examination documented in this encounter Care Teams Director Of Strategic Initiatives Relationship Specialty Start Date End Date Unknown, Provider, PCP - General 11/07/17 documented as of this encounter
--- OUTSIDE RECORDS SUMMARY | 2023-12-03 17:03 | XMS_ITS | Encounter Summary ---
Author Organization [facility] Address [facility] [place] [address] Care Team Providers Care Lead Sql Developer Name Role Phone Anny Willoughby MD Primary Care Provider [phone] Reason for Visit * Reason Comments Follow-up Encounter Details Date Type Department Care Team ([facility] st Contact Info) Description 09/06/2014 3:00 PM EDT Office Visit Dermatology at [address] [place] [phone] Davi Radford MD [address] [place] [address] RD, [place] [address] Verruca vulgaris; Hypertrophic scar Discharge Disposition: Home Social History Tobacco Use Types Packs/Day Years Used Date Smoking Tobacco: Never Smokeless Tobacco: Never Alcohol Use Standard Drinks/Week Comments No 0 (1 standard drink = 0.6 oz pur e alcohol) Sex and Gender Information Value Date Recorded Sex Assigned at Not on file Gender Identity Not on file Sexual Orientation Not on file documented as of this encounter Patient Instructions * Patient Instructions* Jennifer Phillip LPN - 09/06/2014 2:59 PM EDT Images from the original note were not included. [facility] Warts: After Your Visit Your Care Instructions A wart is a harmless skin growth caused by a virus. The virus makes the top layer of skin grow quickly, causing a wart. Warts usually go away on their own in months or years. There are several types of warts. Common warts appear most often on the hands, but they may be anywhere on the body. Plantarwarts occur on the soles of the feet and may cause pain when you walk. Warts spread easily. You can reinfect yourself by touching the wart and then touching another part of your body. You can infect others by sharing towels, razors, or other personal items. Most warts do not need treatment and go away on their own. But if warts cause pain or spread, your doctor may recommend that you use an tpyw-epk-zzlntoo treatment. These include salicylic acid or duct tape. Or your doctor may prescribe a stronger medicine to put on warts or may inject them with medicine. The doctor also can remove warts through surgery or by freezing them. Follow-up care is a roberts part of your treatment and safety. Be sure to make and go to all appointments, and call your doctor if you are having problems. It???s also a good idea to know your test results and keep a list of the medicines you take. How can you care for yourself at home? For common warts ?? Use salicylic acid or duct tape as your doctor directs. You put the medicine or the tape on a wart for several days and then file down the skin on the wart. You use the salicylic acid treatment for 2 to 3 months or the tape for 1 to 2 months. ?? If your doctor prescribes medicine to put on warts, use it exactly as directed. Call your doctorif you think you are having a problem with your medicine. For plantar (foot) warts ?? Wear comfortable shoes and socks. Avoid high heels and shoes that put a lot of pressure on your foot. ?? Pad the wart with doughnut-shaped felt or a moleskin patch. You can buy these at a [employer]. Put the pad around the plantar wart so that it relieves pressure on the wart. You also can place pads or cushions in your shoes to make walking more comfortable. ?? Take an pyiv-znx-fwhwwvz pain medicine, such as acetaminophen (Tylenol), ibuprofen (Advil, Motrin), or naproxen (Aleve). Read and follow all instructions on the label. ?? Do not take two or more pain medicines at the same time unless the doctor told you to. Many painmedicines have acetaminophen, which is Tylenol. Too much acetaminophen (Tylenol) can be harmful. To avoid spreading warts ?? Keep warts covered with a bandage or athletic tape. ?? Do not bite your nails or cuticles. This may spread warts from one finger to another. When should you call for help? Call your doctor now or seek immediate medical care if: ?? You have signs of infection, such as: ?? Increased pain, swelling, warmth, or redness. ?? Red streaks leading from a wart. ?? Pus draining from a wart. ?? A fever. Watch closely for changes in your health, and be sure to contact your doctor if: ?? You have a new growth and you are not sure it is a wart. ?? You still have warts after 2 to 3 months of tsja-mgj-kaxbqpc treatment. ?? Your warts are growing or spreading quickly, even with treatment. ?? You cannot walk without pain because of a plantar wart. ?? You do not get better as expected. Where can you learn more? Visit our health information library at [email or web address] You can also view health information on [employer], your personal patient account. Log in or sign up today. Enter K886 in the search box to learn more about Warts: After Your Visit. ?? [id number] [employer]. Care instructions adapted under license by [facility]. This care instruction is for use with your licensed healthcare professional. If you have questions about a medical condition or this instruction, always ask your healthcare professional. [employer] disclaims any warranty or liability for your use of this information. Content Version: 10.4.927706; Current as of: June 14, 2013 documented in this encounter Progress Notes * Davi Radford MD - 09/06/2014 3:31 PM EDT Problem: Skin lesion of concern. Toyin follows up and has done beautifully. Physical examination shows the verruca vulgaris has entirely resolved. She has really had flattening of the hypertrophic scar on the presternal chest. Assessment and Plan: 1. Hypertrophic scar. a. Patient congratulated on wonderful response. 2. Verruca vulgaris, right hand. a. To assure complete treatment and successful resolution, the site was treated with LN2 times two. b. Return to clinic now just on a p.r.n. basis. COPY: Jenniffer RodrigesRNas documented in this encounter Plan of Treatment Not on file documented as of this encounter Visit Diagnoses Diagnosis Verruca vulgaris Viral warts, unspecified Hypertrophic scar Keloid scar documented in this encounter Care Teams Lead Sql Developer Relationship Specialty Start Date End Date Anny Willoughby MD [address] [place] [id number] PCP - General 02/25/10 documented as of this encounter
--- OUTSIDE RECORDS SUMMARY | 2023-12-03 17:03 | XMS_ITS | Referral Summary ---
Author Organization [facility] Address [address] [place] [address] Care Team Providers Care Human Resource Adviser Name Role Phone Unknown, Provider Primary Care Provider Social History Tobacco Use Types Packs/Day Years Used Date Smoking Tobacco: Never Assessed Interpersonal Safety Answer Date Record ed Physically Hurt Never 11/05/2019 Verbally Threaten Not on file 11/05/2019 Sex and Gender Information Value Date Recorded Sex Assigned at Not on file Gender Identity Not on file Sexual Orientation Not on file Plan of Treatment Not on file Care Teams Human Resource Adviser Relationship Specialty Start Date End Date Unknown, Provider, PCP - General 11/07/17
--- OUTSIDE RECORDS SUMMARY | 2023-12-03 17:03 | XMS_ITS | Encounter Summary ---
Author Organization [facility] Address [facility] [place] [address] Care Team Providers Care Live Study Manager Name Role Phone Anny Willoughby MD Primary Care Provider [phone] Encounter Details Date Type Department Care Team (Late st Contact Info) Description 02/20/2011 [place] [address] Brenden John MD [facility] [place] [address] Social History Tobacco Use Types Packs/Day Years Used Date Smoking Tobacco: Never Assessed Sex and Gender Information Value Date Recorded Sex Assigned at Not on file Gender Identity Not on file Sexual Orientation Not on file documented as of this encounter Plan of Treatment Not on file documented as of this encounter Visit Diagnoses Not on filedocumented in this encounter Care Teams Live Study Manager Relationship Specialty Start Date End Date Anny Willoughby MD [address] [place] [address] PCP - General 02/25/10 documented as of this encounter
--- OUTSIDE RECORDS SUMMARY | 2023-12-03 17:03 | XMS_ITS | Encounter Summary ---
Author Organization [facility] Address [facility] [place] [address] Care Team Providers Care Application Designer Name Role Phone Anny Willoughby MD Primary Care Provider [phone] Reason for Visit * Reason Comments Skin Check Encounter Details Date Type Department Care Team ([facility] st Contact Info) Description 08/06/2014 1:00 PM EDT Office Visit Dermatology at [address] [phone] Davi Radford MD [address] [place] [address], [place] [address] Verruca vulgaris; Hypertrophic scar Discharge Disposition: Home [...] * Patient Instructions* Jennifer Phillip LPN - 08/06/2014 1:30 PM EDT Images from the original note were not included. [facility] Warts: After Your Visit Your Care Instructions [...] doctor may recommend that you use an xwrm-sgl-inollgq treatment. These include salicylic acid or duct [...] patch. You can buy these at a [employer]. Put the pad around the plantar wart so that it relieves pressure on the wart. You also can place pads or cushions in your shoes to make walking more comfortable. ?? Take an etaf-ikq-swlovll pain medicine, such as acetaminophen (Tylenol), ibuprofen [...] warts after 2 to 3 months of xmav-qyn-euytvba treatment. ?? Your warts are growing or spreading quickly, even with treatment. ?? You cannot walk without pain because of a plantar wart. ?? You do not get better as expected. Where can you learn more? Visit our health information library at [email or web address] You can also view health information on [employer], your personal patient account. Log in or sign up today. Enter K886 in the search box to learn more about Warts: After Your Visit. ?? [id number] [employer]. Care instructions adapted under license by [facility]. This care instruction is for use with your licensed healthcare professional. If you have questions about a medical condition or this instruction, always ask your healthcare professional. [employer] disclaims any warranty or liability for your use of this information. Content Version: 10.3.304450; Current as of: June 14, 2013 documented in this encounter Progress Notes * Davi Radford MD - 08/06/2014 1:41 PM EDT Problem: Skin lesion of concern. Toyin is a 28-year-old woman who has had a wart for six months on her right hand present as diagramed on the accompanying flow sheet. She also has a slight hypertrophic scar that developed on the upper chest where she had a deep-seated acne papulopustule. The wart has not been treated nor has the upper chest papule. Physical examination reveals a verruca vulgaris present as described above and a 7-mm slightly raised firm papule on the upper presternal chest consistent with a very mild hypertrophic scar. Assessment and Plan: 1. Hypertrophic scar. a. Discussed diagnosis. b. Today site was injected with Kenalog 20 mg/mL, 0.15 mL injected, and the patient tolerated it well. She states that it felt like tickling. 2. Verruca vulgaris, right hand. a. LN2 times two applied to site. b. Recommend I see her again in one month for repeat check. May need to repeat treatment at the above sites, and I discussed this with the patient today who is aware. COPY: Jenniffer [email or web address]. documented in this encounter Plan of Treatment Not on file documented as of this encounter Visit Diagnoses Diagnosis Verruca vulgaris Viral warts, unspecified Hypertrophic scar Keloid scar documented in this encounter Care Teams Application Designer Relationship Specialty Start Date End Date Anny Willoughby MD [address] [place] [address] PCP - General 02/25/10 documented as of this encounter
--- OUTSIDE RECORDS SUMMARY | 2023-12-03 17:03 | XMS_ITS | Encounter Summary ---
Author Organization [facility] Address [address] [place] [address] Care Team Providers Care Fashion Model Name Role Phone Md HEIDY Carrasquillo Primary Care Provider Unavaila ble Encounter Details Date Type Department Care Team (Late st Contact Info) Description 12/30/2016 Results Only [facility] [phone] Anny Willoughby MD [address] [place] [phone] Social History Tobacco Use Types Packs/Day Years [...] Diagnosis Comments PAP TEST- RESULT ONLY Routine 12/30/2016 0:00 EDT documented in this encounter Results * PAP TEST- RESULT ONLY (12/30/2016 0:00 EDT) Pathology Report: CYTOPATHOLOGY REPORT Reports generated via electronic interface contain original data; however they are lacking the format of the original report. Caution should be taken when reading/interpreti ng unformatted reports. Name: ? TOYIN ARGUETA ? Accession #: ? [id number] : ? 1985 (Age: 31) ??F ?Collect Date: ? 12/30/2016 Location: ? [facility] ? Receive Date: ? 01/05/2017 Provider: ?ANNY WILLOUGHBY MD Copy to: ? Specimen/Source: ?Pap Test, Cervix, ThinPrep Imaging System with manual evaluation Last Menstrual Period: ? 11/2016 Hormonal/Contracep tive Status: ? None ? SPECIMEN ADEQUACY ? Satisfactory for Evaluation - transformation zone component present GENERAL CATEGORIZATION ? Negative for Intraepithelial Lesion or Malignancy ? Document reviewed and electronically signed by: ? CK Jordan(ASCP) ? Report Date: ??01/14/2017 13:15 End of Report [facility] 12/30/2016 01/05/2017 Anny Willoughby MD PATHOLOGY ORDERABLES [facility] [address] [place] [address] documented in this encounter Visit Diagnoses Not on filedocumented in this encounter Care Teams Fashion Model Relationship Specialty Start Date End Date Md Carrasquillo MD PCP - General 12/23/09 11/06/17 documented as of this encounter
--- OUTSIDE RECORDS SUMMARY | 2023-12-03 17:03 | XMS_ITS | Clinical Summary ---
Author Organization [facility] Address [address] [place] [address] Care Team Providers Care Medical Clerk Name Role Phone Unknown, Provider Primary Care Provider [phone] Social History Tobacco Use Types Packs/Day Years Used Date Smoking Tobacco: Never Assessed Interpersonal Safety Answer Date Record ed Physically Hurt Never 11/05/2019 Verbally Threaten Not on file 11/05/2019 Sex and Gender Information Value Date Recorded Sex Assigned at Not on file Gender Identity Not on file Sexual Orientation Not on file Plan of Treatment Health Maintenance Due Date Last Done Comments Hepatitis C Screen 1985 Hepatitis B Vaccine (1 of 3 - 19+ 3-dose series) 06/18 COVID-19 Vaccine ( season) 2022 Care Teams Medical Clerk Relationship Specialty Start Date End Date Unknown, Provider, PCP - General 11/07/17
[2023-12-03 17:25] LABS: HCT 46.8 % (36.0-46.0); HGB 15.2 g/dL (11.2-15.7); MCH 27.4 pg (27.0-33.0); MCHC 32.5 % (32.0-36.0); MCV 84 fL (80-95); MPV 9.7 fL (8.0-11.0); Platelet Count 299 10^3/uL (130-400); RBC 5.55 10^6/uL (3.93-5.22); RDW 12.7 % (11.7-14.6); RDW-SD 38.8 fL; WBC 6.12 10^3/uL (4.4-10.8)
[2023-12-03 18:12] LABS: ALT 44 U/L (14-59); AST 18 U/L (15-37); Albumin 3.3 g/dL (3.4-5.0); Alkaline Phosphatase 130 U/L (46-116); Anion Gap 9.4 mmol/L (3-11); BUN 10 mg/dL (7-18); Bilirubin, Total 0.24 mg/dL (0.2-1.0); CO2 25.6 mmol/L (21.0-32.0); CREATININE 0.7 mg/dL (0.55-1.02); Calcium 8.9 mg/dL (8.5-10.1); Calculated LDL 107 mg/dL (<100); Chloride 108 mmol/L (98-107); Cholesterol 182 mg/dL (<200); Estimated GFR 114.88 (mL/min/1.73m2); Glucose 113 mg/dL (74-106); HDL Cholesterol 47 mg/dL (40-60); Potassium 3.9 mmol/L (3.5-5.1); Sodium 143 mmol/L (136-145); TSH (W/Ref FT4) < 0.01 uIU/mL (0.36-3.74); Total Protein 6.7 g/dL (6.4-8.2); Triglyceride 143 mg/dL (<150)
[2023-12-03 18:46] LABS: FREE T4 2.01 ng/dL (0.76-1.46)
== END 2023-12-03 16:55 | disposition home or self-care (01) ==
LOC: NCHCN 16:54
PROVIDERS: PCP Nurse Practitioner Family; Visit Provider Nurse Practitioner Family
DX: E03.9 Hypothyroidism, unspecified (principal)
CPT/HCPCS: 80053; 80061; 85027; 84439; 84443

== ENCOUNTER 2023-12-23 13:50 | Outpatient (REF) | payer MEDICARE, MEDICAID, SELFPAY ==
--- NOTE | 2023-12-23 13:47 | PAPFT_PTH ---
PATIENT: Cassie Argueta LOC: [facility] U#:[id number] AGE/SX: 38/F ROOM: RE12/23/[address]: Zoë Tyler MD : 1985 BED: DIS: 12/23/2023 SPEC #: [id number] RECD: 12/23/23 17:36 STATUS: ADILSONYaneth REQ #: [id number] MUSTAPHA: 12/23/23 13:[address]: Zoë Tyler DEPT: [facility] Cytology RECD BY: Enid Bates ENTERED: 12/23/23 17:36 SP TYPE: PAPFT OTHR DR: Elyse Harden Tissues: 1 - CX/ENDOCX FOR PAP SMEARS Procedures: PAP THIN PREP/[facility] Screening HPV DNA PROBE Comments: [id number] (HPV 16 & 18/45)
== END 2023-12-23 13:51 | disposition home or self-care (01) ==
LOC: LBN 13:50
PROVIDERS: PCP Nurse Practitioner Family; Visit Provider Obstetrics & Gynecology
DX: Z12.4 Encounter for screening for malignant neoplasm of cervix (principal)
CPT/HCPCS: 88142; 87624

== ENCOUNTER 2024-02-01 00:52 | Outpatient (CLI) | payer MEDICARE, MEDICAID, SELFPAY ==
--- NOTE | 2024-02-01 06:30 | DI.RAD_ITS ---
Exam(s) XR FOOT RT COMPLETE EXAM: XR FOOT RT COMPLETE CLINICAL HISTORY: foot pain,bilat, m79.671. TECHNIQUE: 2D digital imaging was performed. Three views. COMPARISON: CR XR FOOT LT COMPLETE from 02/01/2024 FINDINGS: BONES: No acute fracture is present. No bony destructive lesion is seen. JOINTS: No dislocation present. No significant degenerative changes. Plantar arch is maintained. SOFT TISSUE: Normal. IMPRESSION: Unremarkable radiographs of the right foot. DATA REPOSITORY: RADIATION DOSE DELIVERED:
--- NOTE | 2024-02-01 06:30 | DI.RAD_ITS ---
Exam(s) XR FOOT LT COMPLETE EXAM: XR FOOT LT COMPLETE CLINICAL HISTORY: foot pain,bilat,m79.672. TECHNIQUE: 2D digital imaging was performed. Three views. COMPARISON: CR XR FOOT LT COMPLETE from 09/18/2021 FINDINGS: BONES: No acute fracture is present. No bony destructive lesion is seen. JOINTS: No dislocation present. Mild degenerative changes 1st MTP joint. Hammertoe deformities of the 3rd and 4th toes. SOFT TISSUE: Normal. IMPRESSION: Hammertoe deformities of the 3rd and 4th toes. Mild 1st MTP joint degenerative changes DATA REPOSITORY: RADIATION DOSE DELIVERED:
--- NOTE | 2024-03-01 15:30 | NUR.NOTE ---
Accessed patient chart to print provider note to be faxed to [facility] for billing purposes. Nursing Note:
== END 2024-02-01 01:12 ==
LOC: DI 00:52
PROVIDERS: PCP Nurse Practitioner Family; Visit Provider Podiatrist
DX: M79.671 Pain in right foot (principal); M20.5X2 Other deformities of toe(s) (acquired), left foot
CPT/HCPCS: 20550; 64455; 73630

== ENCOUNTER 2024-03-03 09:48 | Emergency (ER) | payer MEDICARE, MEDICAID, SELFPAY ==
[2024-03-03 09:54] VITALS: BP 135/84; PULSE 104; RESP 18; TEMP 36.4; O2SAT 97
--- OUTSIDE RECORDS SUMMARY | 2024-03-03 10:00 | XMS_ITS | Encounter Summary ---
Author Organization [facility] [place] [address] Care Team Providers Care Orthodontist Small Business Owner Name Role Phone Dereck Elyse MIRELES Primary Care Provider [phone] Encounter Details Date Type Department Care Team (Late st Contact Info) Description 01/31/2024 Telephone [place] [phone] Alma Fischer MD [facility] [place] [address] Social History Tobacco Use Types Packs/Day Years Used Date Smoking Tobacco: Never Smokeless Tobacco: Never Alcohol Use Standard Drinks/Week Comments No 0 (1 standard drink = 0.6 oz pur e alcohol) Sex and Gender Information Value Date Recorded Sex Assigned at Female 01/18/2024 3:44 PM EDT Gender Identity Female 01/18/2024 3:44 PM EDT Sexual Orientation Straight 01/18/2024 3: 44 PM EDT documented as of this encounter Miscellaneous Notes * Telephone Encounter - Mariah Alejo RN - 01/31/2024 11:45 AM EDT Called and spoke with [facility] and clarified the prescription and patient name. No further questions from [facility] at this time. * Telephone Encounter - Mariah Alejo RN - 01/31/2024 11:45 AM EDT Copied from [facility] #[id number]. Topic: Specialty Dept CRMs - Generic Call >> Jan 28, 2024 4:07 PM Nimisha Calvert wrote: Specialist: Alma Fischer MD Relationship (if other than patient-full name): Alesha orosco [facility] Reason for Call: Calling to clarify name of patient as they received a script for a Toyin A. Flum and they have a Cassie A. Flum on file, explained it is patient's preferred name but not legal name, they still need nurse to clarify script and name. Please call to advise. documented in this encounter Plan of Treatment Not on file documented as of this encounter Visit Diagnoses Not on filedocumented in this encounter Care Teams Orthodontist Small Business Owner Relationship Specialty Start Date End Date Elyse Harden APRN [address] [place] [address] PCP - General Family Medicine 01/17/24 documented as of this encounter
--- OUTSIDE RECORDS SUMMARY | 2024-03-03 10:00 | XMS_ITS | Encounter Summary ---
Author Organization [facility] Address [address] [place] [address] Care Team Providers Care Mold Forms Builder Name Role Phone Unknown, Provider Primary Care Provider Elyse Garza Primary Care Provider [phone] Encounter Details Date Type Department Care Team (Late st Contact Info) Description 02/28/2023 Lab Requisition [facility] & [facility] Medicine - [address] [address] Outr Resulting Lab, Provider Social History Tobacco Use Types Packs/Day Years Used Date Smoking Tobacco: Never Assessed Interpersonal Safety Answer Date Record ed Physically Hurt Never 11/05/2019 Verbally Threaten Not on file 11/05/2019 Comments Unknown Sex and Gender Information Value Date Recorded Sex Assigned at Not on file Legal Sex Female 18:50 EST Gender Identity Not on file Sexual Orientation [...] Result Negative Negative 03/02/2023 13:52 EST [facility] Chlamydia trachomatis Result Negative Negative 03/02/2023 13:52 EST [facility] Swab VAGINAL STRUCTURE / Unknown 02/27/2023 18:04 EST 03/01/2023 16:43 EST us Provider Outr Resulting Lab MICROBIOLOGY - GENER AL ORDERABLES Final Result [facility] [address] [place] [address] documented in this encounter Visit Diagnoses Not on filedocumented in this encounter Care Teams Mold Forms Builder Relationship Specialty Start Date End Date Unknown, Provider, PCP - General 11/07/17 01/03/24 Elyse Harden FNP 26 [facility] [address] [place] [address] [phone] PCP - General Family Medicine - Primary Care 01/04/24 documented as of this encounter
--- OUTSIDE RECORDS SUMMARY | 2024-03-03 10:00 | XMS_ITS | Encounter Summary ---
Author Organization [facility] Address [address] [place] [address] Care Team Providers Care Hat Brim Curler Name Role Elana Carrasquillo Md MD Primary Care Provider Unavaila ble Encounter Details Date Type Department Care Team (Late st Contact Info) Description 12/30/2016 Results Only [facility] [[email or web address]] [phone] Anny Willoughby MD Social History Tobacco Use Types Packs/Day Years Used Date Smoking Tobacco: Never Assessed Comments Unknown Sex and Gender Information Value [...] when reading/interpreti ng unformatted reports. Name: ? JENNIFER ARGUETA ? Accession #: ? [id number] : ? 1985 (Age: 31) ??F ?Collect [...] Report Date: ??01/14/2017 13:15 End of Report [facility] 12/30/2016 01/05/2017 us Anny Willoughby MD PATHOLOGY ORDERABLES Final Resul t [facility] [address] [place] [address] documented in this encounter Visit Diagnoses Not on filedocumented in this encounter Care Teams Hat Brim Curler Relationship Specialty Start Date End Date Md Carrasquillo MD PCP - General 12/23/09 11/06/17 documented as of this encounter
--- OUTSIDE RECORDS SUMMARY | 2024-03-03 10:00 | XMS_ITS | Clinical Summary ---
Author Organization [facility] Address [address] [place] [address] Care Team Providers Care Branch Sales And Service Representative Name Role Phone Elyse Harden CASSY Primary Care Provider [phone] Encounters Date Type Department Care Team Description 12/29/2023 Lab Requisition [facility] Pathology & Laboratory Medicine - [address] [address] Zoë Tyler MD Encounter for other general examination from Last 3 Months Social History Tobacco Use Types Packs/Day Years [...] 3-dose series) 06/18 COVID-19 Vaccine ( season) 2023 Procedures Procedure Name Priority Date/Time Associated Diagnosis Comments PAP TEST Today 12/23/2023 13:47 EDT Encounter for other general examination HPV DNA DETECTION WITH GENOTYPING, PCR Today 12/23/2023 13:47 EDT Encounter for other general examination from Last 3 Months Results * PAP TEST (12/23/2023 13:47 EDT) Specimens A. Cervix and/or Endocervix , ThinPrep Imaging System with Manual Evaluation 01/11/2024 15:36 [facility] Specimen Adequacy Satisfactory for Evaluation - transformation zone component present 01/11/2024 15:36 [facility] General Categorization Negative for intraepithelial lesion or malignancy 01/11/2024 15:36 [facility] Descriptive Diagnosis Reactive cellular changes associated with inflammation present (includes repair). 01/11/2024 15:36 [facility] Attestation By the signature below, the attending physician certifies that they have personally conducted a gross and/or microscopic examination of the described specimens and rendered or confirmed the above diagnosis. 01/11/2024 15:36 [facility] at 1536 Clinical History See below 01/11/20 15:36 [facility] Performing Lab [facility] 01/11/2024 15:36 [facility] Scanned Images 01/11/2024 15:36 [facility] HPV High Risk type 16, PCR Negative 01/11/2024 15:36 [facility] HPV High Risk type 18, PCR Negative 01/11/2024 15:36 [facility] HPV Other High Risk Types, PCR Negative The following Other High Risk HPV types were not detected: 31,33, 35, 39, 45, 51, 52, 56, 58, 59, 66 and 68. 01/11/2024 15:36 [facility] Pap Test CERVIX UTERI STRUCTURE / Unknown 12/23/2023 13:47 EDT 12/29/2023 15:00 EDT us Zoë Tyler MD PATHOLOGY ORDERABLES Final R esult [facility] [address] [place] [address] * HPV DNA DETECTION WITH GENOTYPING, PCR (12/23/2023 13:47 EDT) HPV High Risk type 16, PCR Negative Negative 01/11/2024 15:36 EDT [facility] HPV High Risk type 18, PCR Negative Negative 01/11/2024 15:36 EDT [facility] HPV other High Risk types, PCR Negative Negative 01/11/2024 15:36 EDT [facility] Comment: The following Other High Risk HPV types were not detected: ??31,33, 35, 39, 45, 51, 52, 56, 58, 59, 66 and 68. Pap Test CERVIX UTERI STRUCTURE / Unknown 12/23/2023 13:47 EDT 01/10/2024 9:57 EDT us Zoë Tyler MD MICROBIOLOGY - GENERAL ORDER GRACE Final Result [facility] [address] [place] [address] from Last 3 Months Insurance MEDICARE MEDICAID [place] Care Teams Branch Sales And Service Representative Relationship Specialty Start Date End Date Elyse Harden FNP 26 [facility] [address] [place] [phone] PCP - General Family Medicine - Primary Care 01/04/24
--- OUTSIDE RECORDS SUMMARY | 2024-03-03 10:00 | XMS_ITS | Referral Summary ---
Author Organization [facility] Address [address] [place] [address] Care Team Providers Care Seasonal Clerk Name Role Phone Elyse Harden CASSY Primary Care Provider [phone] Encounters Date Type Department Care Team Description 12/29/2023 Lab Requisition [facility] Pathology & Laboratory Medicine - [address] [address] Zoë Tyler MD Encounter for other general [...] file Plan of Treatment Not on file Procedures Procedure Name Priority Date/Time Associated Diagnosis Comments PAP TEST Today 12/23/2023 13:47 EDT Encounter for other general examination HPV DNA DETECTION WITH GENOTYPING, PCR Today 12/23/2023 13:47 EDT Encounter for other general examination from Last 3 Months Results * PAP TEST (12/23/2023 13:47 EDT) Specimens A. Cervix and/or Endocervix , ThinPrep Imaging System with Manual Evaluation 01/11/2024 15:36 EDT [facility] Specimen Adequacy Satisfactory for Evaluation - transformation zone component present 01/11/2024 15:36 [facility] General Categorization Negative for intraepithelial lesion or malignancy 01/11/2024 15:36 [facility] Descriptive Diagnosis Reactive cellular changes associated with inflammation present (includes repair). 01/11/2024 15:36 [facility] Attestation By the signature below, the attending physician certifies that they have personally conducted a gross and/or microscopic examination of the described specimens and rendered or confirmed the above diagnosis. 01/11/2024 15:36 [facility] at 1536 Clinical History See below 01/11/20 15:36 [facility] Performing Lab [facility] 01/11/2024 15:36 [facility] Scanned Images 01/11/2024 15:36 [facility] HPV High Risk type 16, PCR Negative 01/11/2024 15:36 [facility] HPV High Risk type 18, PCR Negative 01/11/2024 15:36 [facility] HPV Other High Risk Types, PCR Negative The following Other High Risk HPV types were not detected: 31,33, 35, 39, 45, 51, 52, 56, 58, 59, 66 and 68. 01/11/2024 15:36 [facility] Pap Test CERVIX UTERI STRUCTURE / Unknown 12/23/2023 13:47 EDT 12/29/2023 15:00 EDT us Zoë Tyler MD PATHOLOGY ORDERABLES Final R esult [facility] [address] [place] [address] * HPV DNA DETECTION WITH GENOTYPING, PCR (12/23/2023 13:47 EDT) HPV High Risk type 16, PCR Negative Negative 01/11/2024 15:36 [facility] HPV High Risk type 18, PCR Negative Negative 01/11/2024 15:36 [facility] HPV other High Risk types, PCR Negative Negative 01/11/2024 15:36 EDT [facility] Comment: The following Other High Risk HPV types were not detected: ??31,33, 35, 39, 45, 51, 52, 56, 58, 59, 66 and 68. Pap Test CERVIX UTERI STRUCTURE / Unknown 12/23/2023 13:47 EDT 01/10/2024 9:57 EDT us Zoë Tyler MD MICROBIOLOGY - GENERAL ORDER GRACE Final Result [facility] [address] [place] [address] from Last 3 Months Insurance MEDICARE MEDICAID [place] Care Teams Seasonal Clerk Relationship Specialty Start Date End Date Elyse Harden FNP 26 [facility] [address] [place] [phone] PCP - General Family Medicine - Primary Care 01/04/24
--- OUTSIDE RECORDS SUMMARY | 2024-03-03 10:00 | XMS_ITS | Encounter Summary ---
Author Organization [facility] Address [address] [place] [address] Care Team Providers Care Crimper Operator Name Role Phone Md HEIDY Carrasquillo Primary Care Provider Alonzo rosado Encounter Details Date Type Department Care Team (Late st Contact Info) Description 11/03/2017 Results Only [facility] [phone] Valeriy Cobos, [address] [phone] Social History Tobacco Use Types [...] taken when reading/interpreting unformatted reports. Name: ? JENNIFER ARGUETA ? Accession #: ? [id number] ? : ? 1985 (Age: 32) ??F ? Collect Date: ? 11/03/2017 ? Location: ? [facility] ? Receive Date: ? 11/04/2017 ? Provider: VALERIY MARTINEZ [facility]- Copy to: ? Final Pathologic Diagnosis: SKIN [...] (morphologically consistent with dermatophyte) are evident. ??(Dr. Thompson)/[facility] Document reviewed and electronically signed by: GILDA [...] (ASCP) 11/04/2017 4:36 PM End of Report [facility] 11/03/2017 16:1 9 EDT 11/04/2017 16:19 EDT us Valeriy Cobos COMMUNICATION CENTER OPERATOR- PATHOLOGY ORDERABLES Fin al Result [facility] [address] [place] [address] documented in this encounter Visit Diagnoses Not on filedocumented in this encounter Care Teams Crimper Operator Relationship Specialty Start Date End Date Md Carrasquillo MD PCP - General 12/23/09 11/06/17 documented as of this encounter
--- OUTSIDE RECORDS SUMMARY | 2024-03-03 10:00 | XMS_ITS | Encounter Summary ---
Author Organization [facility] Address [address] [place] [address] Care Team Providers Care Lye Peel Operator Name Role Phone Md HEIDY Carrasquillo Primary Care Provider Demetriusa ble Encounter Details Date Type Department Care Team (Late st Contact Info) Description 08/07/2014 Results Only [facility] [phone] Ross Jessica Roach, GYROSCOPIC INSTRUMENT MECHANIC 26 [facility] [address] [place] [address] Social History Tobacco Use Types [...] ? JENNIFER ARGUETA ? Accession #: ? [id number] : ? 1985 (Age: 29) ??F ?Collect Date: ? 08/07/2014 Location: ? [facility] ? Receive Date: ? 08/10/2014 Provider: ?JESSICA CEE GYROSCOPIC INSTRUMENT MECHANIC Copy to: ? Specimen/Source: ?Pap Test, Endocervix, [...] Report Date: ??08/20/2014 08:54 End of Report [facility] 08/07/2014 08/10/2014 us Jessica Cee GYROSCOPIC INSTRUMENT MECHANIC PATHOLOGY ORDERABLES Beverly l Result [facility] [address] [place] [address] documented in this encounter Visit Diagnoses Not on filedocumented in this encounter Care Teams Lye Peel Operator Relationship Specialty Start Date End Date Md Carrasquillo MD PCP - General 12/23/09 11/06/17 documented as of this encounter
--- OUTSIDE RECORDS SUMMARY | 2024-03-03 10:00 | XMS_ITS | Encounter Summary ---
Author Organization [facility] Address [address] [place] [address] Care Team Providers Care Cant Gang Sawyer Name Role Phone Md HEIDY Carrasquillo Primary Care Provider Unavaila ble Encounter Details Date Type Department Care Team (Latest Contact Info) Description 11/03/2017 10:22 EDT - 11/03/2017 23:59 EDT Hospital Encounter [address] [address] Unknown, ProviderMD Discharge Disposition: Home or Self [...] Code Departure Means Destination Home or Self Long Term documented in this encounter Plan of Treatment Not on file documented as of this encounter Visit Diagnoses Not on filedocumented in this encounter Care Teams Cant Gang Sawyer Relationship Specialty Start Date End Date Md Carrasquillo MD PCP - General 12/23/09 11/06/17 documented as of this encounter
--- OUTSIDE RECORDS SUMMARY | 2024-03-03 10:00 | XMS_ITS | Encounter Summary ---
Author Organization [facility] Address [address] [place] [address] Care Team Providers Care Car Inspection And Repair Manager Name Role Phone Unknown, Provider Primary Care Provider Elsye Garza Primary Care Provider [phone] Encounter Details Date Type Department Care Team (Late st Contact Info) Description 04/08/2022 Lab Requisition [facility] Pathology & Laboratory Medicine - [address] [address] Zoë Tyler MD [address] [place] [phone] Encounter for other general examination Social History [...] type 16, PCR Negative Negative 04/21/2022 16:23 EST [facility] HPV18/45 RNA (HPV18/45) Negative Negative 04/21/2022 16:23 EST [facility] Papanicolaou smear specimen (specimen) CERVIX UTERI STRUCTURE / Unknown 04/07/2022 16:20 EST 04/15/2022 9:54 EST us Zoë Tyler MD MICROBIOLOGY - GENERAL ORDER GRACE Final Result Performing Organization Address [facility] de Phone Number [facility] [address] [place] [address] * (ABNORMAL) HUMAN PAPILLOMAVIRUS (HPV) DETECTION-HIGH RISK TYPES (04/07/2022 16:20 EST) HPV other High Risk types, PCR Positive( A) Negative 04/22/2022 9:17 EST [facility] Comment:E6 OR E7 mRNA from o ne or more types of HPV types 16,18,31,33,35,39,45,51,52,56,58,59,66, and 68 is detected by alarm mechanic mediated amplification. High and intermediate risk HPV types are associated with most squamous intraepithelial lesions and cervical cancers. Papanicolaou smear specimen (specimen) CERVIX UTERI STRUCTURE / Unknown 04/07/2022 16:20 EST 04/15/2022 9:54 EST us Zoë Tyler MD MICROBIOLOGY - GENERAL ORDER GRACE Final Result Performing Organization Address [facility] Co de Phone Number [facility] [address] [place] [address] * PAP TEST (04/07/2022 16:20 EST) Specimens A. Cervix and/or Endocervix , ThinPrep Imaging System with Manual Evaluation 04/22/2022 9:17 EST [facility] Specimen Adequacy Satisfactory for Evaluation - transformation zone component present 04/22/2022 9:17 [facility] General Categorization Negative for intraepithelial lesion or malignancy 04/22/2022 9:17 [facility] Descriptive Diagnosis Reactive cellular changes associated with inflammation present (includes repair). 04/22/2022 9:17 [facility] Attestation By the signature below, the attending physician certifies that they have personally conducted a gross and/or microscopic examination of the described specimens and rendered or confirmed the above diagnosis. 04/22/2022 9:17 [facility] at 0917 Clinical History See below 04/22/19 9:17 [facility] HPV The result for the Human Papillomavirus (HPV) Detection-High Risk Types is Positive . E6 OR E7 mRNA from one or more types of HPV types 16,18,31,33,35,39 ,45,51,52,56,58,5 9,66, and 68 is detected by alarm mechanic mediated amplification. High and intermediate risk HPV types are associated with most squamous intraepithelial lesions and cervical cancers. Testing was performed on specimen [id number] and was resulted on 04/16/2022 1308 EST by ANH, LAB INSTRUMENT RESULTS IN 04/22/2022 9:17 [facility] Genotyping 16 & 18/45 The results for the HPV Genotypes 16 and 18/45 are Negative for the HPV16 RNA and Negative for the HPV18/45 RNA (HPV18/45). Testing was performed on specimen [id number] and was resulted on 04/21/2022 1622 EST by ANH, LAB INSTRUMENT RESULTS IN 04/22/2022 9:17 [facility] Performing Lab [facility] 04/22/2022 9:17 [facility] Scanned Images 04/22/2022 9:17 [facility] Papanicolaou smear specimen (specimen) CERVIX UTERI STRUCTURE / Unknown 04/07/2022 16:20 EST 04/08/2022 9:48 EST us Zoë Tyler MD PATHOLOGY ORDERABLES Final R esult [facility] [address] [place] [address] documented in this encounter Visit Diagnoses Diagnosis Encounter for other general examination documented in this encounter Care Teams Car Inspection And Repair Manager Relationship Specialty Start Date End Date Unknown, Provider, PCP - General 11/07/17 01/03/24 Elyse Harden FNP 26 [facility] [address] [place] [phone] PCP - General Family Medicine - Primary Care 01/04/24 documented as of this encounter
--- OUTSIDE RECORDS SUMMARY | 2024-03-03 10:00 | XMS_ITS | Encounter Summary ---
Author Organization [facility] [place] [address] Care Team Providers Care Supervisor Pole Yard Name Role Phone Elyse Harden APRN Primary Care Provider [phone] Encounter Details Date Type Department Care Team (Late st Contact Info) Description 01/27/2024 Orders [place] [address] Alma Fischer MD [facility] [place] [address] Hyperthyroidism Social History Tobacco Use Types Packs/Day Years [...] PM EDT documented as of this encounter Plan of Treatment Scheduled Orders Name Type Priority Associated Diagnoses Orde r Schedule TSH Lab Routine Hyperthyroidism Expected: 01/27/2024 (Approximate), Expires: 07/28/2024 T4, free Lab Routine Hyperthyroidism Expected: 01/27/2024 (Approximate), Expires: 07/28/2024 documented as of this encounter Visit Diagnoses Diagnosis Hyperthyroidism Thyrotoxicosis without mention of goiter or other cause, without mention of thyrotoxic crisis or storm documented in this encounter Care Teams Supervisor Pole Yard Relationship Specialty Start Date End Date Elyse Harden APRN [address] [place] [address] PCP - General Family Medicine 01/17/24 documented as of this encounter
--- OUTSIDE RECORDS SUMMARY | 2024-03-03 10:00 | XMS_ITS | Encounter Summary ---
Author Organization [facility] [place] [address] Care Team Providers Care Press Washer Name Role Phone Dereck Elyse ALINE Primary Care Provider [phone] Encounter Details Date Type Department Care Team (Late st Contact Info) Description 02/18/2024 Telephone Endocr[place]ology [place] [phone] Petra Holloway RN Social History Tobacco Use Types Packs/Day Years [...] encounter Miscellaneous Notes * Telephone Encounter - Petra Holloway RN - 02/18/2024 9:22 AM EST Copied from [facility] #[id number]. Topic: Specialty Dept CRMs - Generic Call >> Feb 17, 2024 12:13 PM Lauren Robert wrote: Specialist: Alma Fischer MD Relationship (if other than patient-full name): Reason for Call: Patient states she spoke with her PCP, and has decided not to take the Tapazole. Patient said her eyes are fine, and will be doing blood work through her PCP office. documented in this encounter Plan of Treatment Not on file documented as of this encounter Visit Diagnoses Not on filedocumented in this encounter Care Teams Press Washer Relationship Specialty Start Date End Date Elyse Harden APRN [address] [place] [address] PCP - General Family Medicine 01/17/24 documented as of this encounter
--- OUTSIDE RECORDS SUMMARY | 2024-03-03 10:00 | XMS_ITS | Clinical Summary ---
[place] [address] Care Team Providers Care Drafter Topographical Name Role Phone Elyse Harden APRN Primary Care Provider [phone] Allergies Active Allergy Reactions Criticality Noted Date [...] 1,200 mg by mouth every morning. Active UNKNOWN TO PATIENT Birthcontrol pill Active acetaminophen (Tylenol) 325 mg tablet Take 650 mg by mouth every 4 hours as needed for Pain. Active methIMAzole (Tapazole) 10 mg tablet Take 1 tablet by mouth daily. 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 Encounters Date Type Department Care Team Description 02/18/2024 [place] [address] Petra Holloway RN 01/31/2024 [place] [address] Alma Fischer MD 01/27/2024 [place] [address] Alma Fischer MD Hyperthyroidism 01/25/2024 2:00 PM EDT [place] [phone] Alma Fischer MD Hyperthyroidism 01/25/2024 1:45 PM EDT Laboratory Appointment Lab [address] [place] [phone] Hyperthyroidism 01/25/2024 Travel 01/24/2024 [place] [address] Ana Maria Ramos 01/17/2024 Transcribe Orders eDH Incoming Referrals [phone] Elyse Harden APRN Thyrotoxicosis without thyroid storm, unspecified thyrotoxicosis type from Last 3 Months Social History Tobacco [...] Orientation Straight 01/18/2024 3: 44 PM EDT Last Filed Vital Signs Vital Sign Reading Time Taken Comments Blood Pressure 137/74 01/25/2024 2:02 PM EDT Pulse 73 01/25/2024 2:02 PM EDT Temperature 36.7 ??C (98.1 ??F) 01/25/2024 2:02 PM ED T Respiratory Rate 16 01/25/2024 2:02 PM EDT Oxygen Saturation 99% 01/25/2024 2:02 PM EDT Inhaled Oxygen Concentration - - Weight 99.2 kg (218 lb 9.6 oz) 01/25/2024 2:02 P M EDT Height 160 cm (5' 3) 01/25/2024 2:02 PM EDT Body Mass Index 38.72 01/25/2024 2:02 PM EDT Plan of Treatment Health Maintenance Due Date Last Done Comments HIV screen 06/18/2005 Hepatitis C Screening 06/18/2005 Lipid Screening 06/18/2005 Hepatitis B vaccine (0-59 yrs) (1) 06/18/2006 Tetanus/Diphtheria/Pertussis Vaccines (1 - Tdap) 06/18 HPV test 06/18/2017 PAP Smear 06/18/2017 Covid-19 Vaccine (1 - season) 2023 Influenza (Flu) vaccine (1 o f 1 - Influenza standard series) 12/05/2023 Procedures Procedure Name Priority Date/Time Associated Diagnosis Comments HEPATIC FUNCTION PANEL Routine 3:12 PM EDT Hyperthyroidism THYROID STIMULATING IMMUNOGLOBULINS Routine 01/25/2024 3:12 PM EDT Hyperthyroidism T4, FREE Routine 01/25/2024 3:12 PM EDT Hyperthyroidism TSH Routine 01/25/2024 3:12 PM EDT Hyperthyroidism from Last 3 Months Results * (ABNORMAL) Thyroid Stimulating Immunoglobulins (01/25/2024 3:12 PM EDT) Thyroid Stimulating Immunoglobulin-TSI (ARU) 9.09(H) <=0.54 IU/L 01/28/2024 5:21 AM EDT [facility] Comment: INTERPRETIVE INFORMATION: Thyroid Stimulating Immunoglobulin ?(TSI) 0.54 IU/L or less.........Consistent with healthy thyroid function or non-Graves thyroid or autoimmune disease. Those with healthy thyroid function typically have results less than 0.1 IU/L. 0.55 IU/L or greater......Consistent with Graves disease (autoimmune hyperthyroidism) This assay specifically detects thyroid stimulating autoantibodies. For diagnostic purposes, the results obtained from this assay should be used in combination with clinical examination, patient medical history, and other findings. Performed By: [email or web address] [address] [place] [id number] Head Loader: Jace Eckert MD, PhD CLIA Number: [id number] Blood VENOUS BLOOD SPECIMEN / Unknown Venipuncture / Unknown 01/25/2024 3:12 PM EDT 01/25/2024 3:13 PM EDT Citlalli Allen MD IMMUNOLOGY ORDERABLE S [facility] [address] * (ABNORMAL) TSH (01/25/2024 3:12 PM EDT) Thyroid Stimulating Hormone <0.01(L) 0.27 - 4.20 mcIU/mL 01/25/2024 4:09 PM EDT [facility] Comment: Reference Interval (mcIU/mL): ?? Females: ? First Trimester: 0.23-3.88 ? Second Trimester: 0.22-3.90 ? Third Trimester: 0.44-4.66 Blood VENOUS BLOOD SPECIMEN / Unknown Venipuncture / Unknown 01/25/2024 3:12 PM EDT 01/25/2024 3:13 PM EDT Citlalli Allen MD CHEMISTRY ORDERABLES Performing Organization Address [facility] Co de Phone Number [facility] [place] [address] * (ABNORMAL) T4, free (01/25/2024 3:12 PM EDT) Free T4 2.78(H) 0.93 - 1.70 ng/dL 01/25/2024 4:09 PM EDT [facility] Comment: Reference Interval (ng/dL): ?? Females: ? First Trimester: 0.97-1.68 ? Second Trimester: 0.77-1.51 ? Third Trimester: 0.77-1.49 Blood VENOUS BLOOD SPECIMEN / Unknown Venipuncture / Unknown 01/25/2024 3:12 PM EDT 01/25/2024 3:13 PM EDT Citlalli Allen MD CHEMISTRY ORDERABLES [facility] [place] [address] * (ABNORMAL) Hepatic Function Panel (01/25/2024 3:12 PM EDT) Albumin 4.3 3.2 - 5.2 g/dL 01/25/2024 4:09 PM EDT [facility] Aspartate Aminotransferase 25 <=30 unit/L 01/25/2024 4:09 PM EDT [facility] Alanine Aminotransferase 46(H) 0 - 30 unit/L 01/25/2024 4:09 PM EDT [facility] Alkaline Phosphatase 124(H) 35 - 105 unit/L 01/25/2024 4:09 PM EDT [facility] Bilirubin, Total 0.3 <=1.3 mg/dL 01/25/2024 4:09 PM EDT [facility] Bilirubin, Direct <0.2 0.0 - 0.3 mg/dL 01/25/2024 4:09 PM EDT [facility] Protein, Total 7.7 6.1 - 8.0 g/dL 01/25/2024 4:09 PM EDT [facility] Blood VENOUS BLOOD SPECIMEN / Unknown Venipuncture / Unknown 01/25/2024 3:12 PM EDT 01/25/2024 3:13 PM EDT Citlalli Allen MD CHEMISTRY ORDERABLES [facility] [place] [address] from Last 3 Months Care Teams Drafter Topographical Relationship Specialty Start Date End Date Elyse Harden APRN [address] [place] [address] PCP - General Family Medicine 01/17/24
--- OUTSIDE RECORDS SUMMARY | 2024-03-03 10:00 | XMS_ITS | Encounter Summary ---
Author Organization [facility] Address [address] [place] [address] Care Team Providers Care Resource Manager Forester Name Role Phone Unknown, Provider Primary Care Provider Elyse Garza Primary Care Provider [phone] Encounter Details Date Type Department Care Team (Late st Contact Info) Description 12/29/2023 Lab Requisition [facility] Pathology & Laboratory Medicine - [address] [address] Zoë Tyler MD [address] [place] [phone] Encounter for other general examination Social History [...] 13:47 EDT Encounter for other general examination documented in this encounter Results * HPV DNA DETECTION WITH GENOTYPING, PCR (12/23/2023 13:47 EDT) HPV High Risk type 16, PCR Negative Negative 01/11/2024 15:36 EDT [facility] HPV High Risk type 18, PCR Negative Negative 01/11/2024 15:36 T [facility] HPV other High Risk types, PCR Negative Negative 01/11/2024 15:36 [facility] Comment: The following Other High Risk HPV types were not detected: ??31,33, 35, 39, 45, 51, 52, 56, 58, 59, 66 and 68. Pap Test CERVIX UTERI STRUCTURE / Unknown 12/23/2023 13:47 EDT 01/10/2024 9:57 EDT us Zoë Tyler MD MICROBIOLOGY - GENERAL ORDER GRACE Final Result [facility] [address] [place] [address] * PAP TEST (12/23/2023 13:47 EDT) Specimens A. Cervix and/or Endocervix , ThinPrep Imaging System with Manual Evaluation 01/11/2024 15:36 [facility] Specimen Adequacy Satisfactory for Evaluation - transformation zone component present 01/11/2024 15:36 [facility] General Categorization Negative for intraepithelial lesion or malignancy 01/11/2024 15:36 [facility] Descriptive Diagnosis Reactive cellular changes associated with inflammation present (includes repair). 01/11/2024 15:36 [facility] Attestation By the signature below, the attending physician certifies that they have personally conducted a gross and/or microscopic examination of the described specimens and rendered or confirmed the above diagnosis. 01/11/2024 15:36 [facility] at 1536 Clinical History See below 01/11/20 15:36 [facility] Performing Lab [facility] 01/11/2024 15:36 [facility] Scanned Images 01/11/2024 15:36 EDT [facility] HPV High Risk type 16, PCR Negative 01/11/2024 15:36 EDT [facility] HPV High Risk type 18, PCR Negative 01/11/2024 15:36 EDT [facility] HPV Other High Risk Types, PCR Negative The following Other High Risk HPV types were not detected: 31,33, 35, 39, 45, 51, 52, 56, 58, 59, 66 and 68. 01/11/2024 15:36 EDT [facility] Pap Test CERVIX UTERI STRUCTURE / Unknown 12/23/2023 13:47 EDT 12/29/2023 15:00 EDT us Zoë Tyler MD PATHOLOGY ORDERABLES Final R esult [facility] [address] [place] [address] documented in this encounter Visit Diagnoses Diagnosis Encounter for other general examination documented in this encounter Care Teams Resource Manager Forester Relationship Specialty Start Date End Date Unknown, Provider, PCP - General 11/07/17 01/03/24 Elyse Harden FNP [address] [place] [phone] PCP - General Family Medicine - Primary Care 01/04/24 documented as of this encounter
--- OUTSIDE RECORDS SUMMARY | 2024-03-03 10:00 | XMS_ITS | Encounter Summary ---
Author Organization [facility] Address [address] [place] [address] Care Team Providers Care Metal Technician Name Role Elana Carrasquillo Md MD Primary Care Provider Unavaila ble Encounter Details Date Type Department Care Team (Late st Contact Info) Description 12/20/2009 Results Only [address] [address] Anny Willoughby MD Social History Tobacco Use [...] ng unformatted reports. ? Name: ? FLUM, JENNIFER ? Accession #: ? [id number] ? : ? 1985 (Age: 24) ??F [...] 09:08 ? End of Report ? [facility] 12/20/2009 12/23/2009 us Anny Willoughby MD PATHOLOGY ORDERABLES Final Resul t [facility] [address] [place] [address] documented in this encounter Visit Diagnoses Not on filedocumented in this encounter Care Teams Metal Technician Relationship Specialty Start Date End Date Md Carrasquillo MD PCP - General 12/23/09 11/06/17 documented as of this encounter
--- OUTSIDE RECORDS SUMMARY | 2024-03-03 10:01 | XMS_ITS | Encounter Summary ---
[place] [address] Care Team Providers Care Chisel Trimmer Name Role Phone Anny Willoughby MD Primary Care Provider [phone] Reason for Visit * Reason Comments Follow-up Encounter Details Date Type Department Care Team (Late st Contact Info) Description 09/06/2014 3:00 PM EDT Office Visit Dermatology at [address] [place] [address] Davi Radford MD [address] [place] [address], [place] [address] Verruca vulgaris; Hypertrophic scar Discharge Disposition: Home [...] PM EDT documented as of this encounter Patient Instructions * Patient Instructions* Jennifer Phillip LPN - 09/06/2014 2:59 PM EDT Images from the original note were not included. [facility] Warts: After Your Visit Your Care Instructions [...] doctor may recommend that you use an iszr-fvg-qjzkaok treatment. These include salicylic acid or duct [...] patch. You can buy these at a drugstore. Put the pad around the plantar wart so that it relieves pressure on the wart. You also can place pads or cushions in your shoes to make walking more comfortable. ?? Take an svvc-lmc-eolfhxq pain medicine, such as acetaminophen (Tylenol), ibuprofen [...] warts after 2 to 3 months of tokt-enb-mldszpx treatment. ?? Your warts are growing or spreading quickly, even with treatment. ?? You cannot walk without pain because of a plantar wart. ?? You do not get better as expected. Where can you learn more? Visit our health information library at [email or web address] You can also view health information on [employer], your personal patient account. Log in or sign up today. Enter K886 in the search box to learn more about Warts: After Your Visit. ?? [phone] [employer]. Care instructions adapted under license by [facility]. This care instruction is for use with your licensed healthcare professional. If you have questions about a medical condition or this instruction, always ask your healthcare professional. [employer] disclaims any warranty or liability for your use of this information. Content Version: 10.4.853159; Current as of: June 14, 2013 documented [...] now just on a p.r.n. basis. COPY: Holli RodrigesP.R.[email or web address] documented in this encounter Plan of Treatment Not on file documented as of this encounter Visit Diagnoses Diagnosis Verruca vulgaris Viral warts, unspecified Hypertrophic scar Keloid scar documented in this encounter Care Teams Chisel Trimmer Relationship Specialty Start Date End Date Anny Willoughby MD [address] [place] [address] PCP - General 02/25/10 01/16/24 documented as of this encounter
--- OUTSIDE RECORDS SUMMARY | 2024-03-03 10:01 | XMS_ITS | Encounter Summary ---
[place] [address] Care Team Providers Care Social Work Lecturer Name Role Phone Elyse Harden APRN Primary Care Provider [phone] Encounter Details Date Type Department Care Team (Late st Contact Info) Description 01/24/2024 Telephone [place] [phone] Ana Maria Ramos Social History Tobacco Use Types Packs/Day Years [...] on filedocumented in this encounter Care Teams Social Work Lecturer Relationship Specialty Start Date End Date Elyse Harden APRN [address] [place] [address] PCP - General Family Medicine 01/17/24 documented as of this encounter
--- OUTSIDE RECORDS SUMMARY | 2024-03-03 10:01 | XMS_ITS | Encounter Summary ---
[place] [address] Care Team Providers Care Licensed Mental Health Professional Name Role Phone Elyse Harden APRN Primary Care Provider Encounter Details Date Type Department Care Team (Latest Contact Info) Description 01/25/2024 1:45 PM EDT Laboratory Appointment Lab [place] [phone] Hyperthyroidism Social History Tobacco Use Types Packs/Day [...] Procedure Name Priority Date/Time Associated Diagnosis Comments THYROID STIMULATING IMMUNOGLOBULINS Routine 01/25/2024 3:12 PM EDT Hyperthyroidism TSH Routine 01/25/2024 3:12 PM EDT Hyperthyroidism T4, FREE Routine 01/25/2024 3:12 PM EDT Hyperthyroidism HEPATIC FUNCTION PANEL Routine 3:12 PM EDT Hyperthyroidism documented in this encounter Results * (ABNORMAL) Hepatic Function Panel (01/25/2024 3:12 PM EDT) Pathologist [facility] Albumin 4.3 3.2 - 5.2 g/dL 01/25/2024 4:09 PM EDT [facility] Aspartate Aminotransferase 25 <=30 unit/L 01/25/2024 4:09 PM EDT [facility] Alanine Aminotransferase 46(H) 0 - 30 unit/L 01/25/2024 4:09 PM EDT [facility] Alkaline Phosphatase 124(H) 35 - 105 unit/L 01/25/2024 4:09 PM EDT [facility] Bilirubin, Total 0.3 <=1.3 mg/dL 01/25/2024 4:09 PM EDT [facility] Bilirubin, Direct <0.2 0.0 - 0.3 mg/dL 01/25/2024 4:09 PM EDT [facility] Protein, Total 7.7 6.1 - 8.0 g/dL 01/25/2024 4:09 PM EDT [facility] Blood VENOUS BLOOD SPECIMEN / Unknown Venipuncture / Unknown 01/25/2024 3:12 PM EDT 01/25/2024 3:13 PM EDT Citlalli Allen MD CHEMISTRY ORDERABLES [facility] [place] [address] * (ABNORMAL) Thyroid Stimulating Immunoglobulins (01/25/2024 3:12 [...] medical history, and other findings. Performed By: [employer] [employer] [address] [place] [address] Reinsurance Claims Analyst: Jace Eckert MD, PhD CLIA Number: [id number] Blood VENOUS BLOOD SPECIMEN / Unknown Venipuncture / Unknown 01/25/2024 3:12 PM EDT 01/25/2024 3:13 PM EDT Citlalli Allen MD IMMUNOLOGY ORDERABLE S Performing Organization Address City/[facility] Co de Phone Number [facility] [address] * (ABNORMAL) T4, free (01/25/2024 3:12 PM EDT) Free T4 2.78(H) 0.93 - 1.70 ng/dL 01/25/2024 4:09 PM EDT [facility] Comment: Reference Interval (ng/dL): ?? Females: ? First Trimester: 0.97-1.68 ? Second Trimester: 0.77-1.51 ? Third Trimester: 0.77-1.49 Blood VENOUS BLOOD SPECIMEN / Unknown Venipuncture / Unknown 01/25/2024 3:12 PM EDT 01/25/2024 3:13 PM EDT Citlalli Allen MD CHEMISTRY ORDERABLES [facility] [place] [address] * (ABNORMAL) TSH (01/25/2024 3:12 PM EDT) Thyroid Stimulating Hormone <0.01(L) 0.27 - 4.20 mcIU/mL 01/25/2024 4:09 PM EDT [facility] Comment: Reference Interval (mcIU/mL): ?? Females: ? First Trimester: 0.23-3.88 ? Second Trimester: 0.22-3.90 ? Third Trimester: 0.44-4.66 Blood VENOUS BLOOD SPECIMEN / Unknown Venipuncture / Unknown 01/25/2024 3:12 PM EDT 01/25/2024 3:13 PM EDT Citlalli Allen MD CHEMISTRY ORDERABLES [facility] [place] [address] documented in this encounter Visit Diagnoses Diagnosis Hyperthyroidism Thyrotoxicosis without mention of goiter or other cause, without mention of thyrotoxic crisis or storm documented in this encounter Care Teams Licensed Mental Health Professional Relationship Specialty Start Date End Date Elyse Harden APRN [address] [place] [address] PCP - General Family Medicine 01/17/24 documented as of this encounter
--- OUTSIDE RECORDS SUMMARY | 2024-03-03 10:01 | XMS_ITS | Encounter Summary ---
[place] [address] Care Team Providers Care Technician Test Systems Name Role Phone Elyse Harden APRN Primary Care Provider [phone] Reason for Referral * Consultation (STAT) - Authorized Specialty Diagnoses / Procedures Referred By Contac t Referred To Contact Endocrinology Diagnoses Thyrotoxicosis without thyroid storm, unspecified thyrotoxicosis type HYPERTHYROIDISM Elyse Harden APRN [address] [place] [address] [facility] Endocrinology [address] [place] [phone] Referral ID Status Reason Start Date Expiration Date Visits Requested Visits Authorized [id number] Authorized Consult, Test & Treat PCP Updated and/or Approved 4 01/16/2025 6 6 Encounter Details Date Type Department Care Team (Latest Contact Info) Description 01/17/2024 Transcribe Orders eDH Incoming Referrals [phone] Elyse Harden APRN [address] [place], [place] [id number] Thyrotoxicosis without thyroid storm, unspecified thyrotoxicosis type Social History Tobacco Use Types Packs/Day Years [...] of this encounter Plan of Treatment Scheduled Referrals Name Type Priority Associated Diagnoses Orde r Schedule Referral to Endocrinology Outpatient Referral Urgent Thyrotoxicosis Without Thyroid Storm, Unspecified Thyrotoxicosis Type Ordered: 01/17/2024 documented as of this encounter Visit Diagnoses Diagnosis 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
--- OUTSIDE RECORDS SUMMARY | 2024-03-03 10:01 | XMS_ITS | Encounter Summary ---
Author Organization [facility] [place] [address] Care Team Providers Care Carriage Rider Name Role Phone Anny Willoughby MD Primary Care Provider [phone] Encounter Details Date Type Department Care Team (Late st Contact Info) Description 03/17/2011 9:26 AM EST - 03/17/2011 11:59 PM EST [place] [phone] Social History Tobacco Use Types Packs/Day Years [...] PM EDT documented as of this encounter Last Filed [...] reviewed by the attending Brenden John MD IMG MRI ORDERABLES documented in this encounter Visit [...] mLs documented in this encounter Care Teams Carriage Rider Relationship Specialty Start Date End Date Anny Willoughby MD [address] [place] [id number] PCP - General 02/25/10 01/16/24 documented as of this encounter
--- OUTSIDE RECORDS SUMMARY | 2024-03-03 10:01 | XMS_ITS | Encounter Summary ---
[place] [address] Care Team Providers Care Contracts Attorney Name Role Phone Elyse Harden APRN Primary Care Provider Encounter Details Date Type Department Care Team (Latest Contact Info) Description 01/25/2024 Travel Social History Tobacco Use Types Packs/Day Years [...] on filedocumented in this encounter Care Teams Contracts Attorney Relationship Specialty Start Date End Date Elyse Harden APRN [address] [place] [address] PCP - General Family Medicine 01/17/24 documented as of this encounter
--- OUTSIDE RECORDS SUMMARY | 2024-03-03 10:01 | XMS_ITS | Encounter Summary ---
Author Organization [facility] Address [facility] [place] [address] Care Team Providers Care Supervisor Fish Processing Name Role Phone Anny Willoughby MD Primary Care Provider [phone] Reason for Visit * Reason Comments Increased Prolactin Level Encounter Details Date Type Department Care Team (Late st Contact Info) Description 03/17/2011 11:00 AM EST [place] [phone] CLINIC, Brenden Lozano MD [facility] [address] Elevated prolactin level (Primary Dx) Discharge Disposition: [...] EST) Prolactin 7.7 4.8 - 23.3 ng/mL CERNER MILLENNIUM Blood specimen (specimen) 03/17/2011 12:07 PM EST 03/17/2011 12:12 PM EST Brenden John MD CHEMISTRY ORDERABLES [facility] documented in this encounter Visit Diagnoses Diagnosis Elevated prolactin level- Primary Other and unspecified anterior pituitary hyperfunction documented in this encounter Care Teams Supervisor Fish Processing Relationship Specialty Start Date End Date Anny Willoughby MD [address] [place] [address] PCP - General 02/25/10 01/16/24 documented as of this encounter
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
--- OUTSIDE RECORDS SUMMARY | 2024-03-03 10:01 | XMS_ITS | Encounter Summary ---
[place] [address] Care Team Providers Care Nurse Aide Name Role Phone Anny Willoughby MD Primary Care Provider [phone] Reason for Visit * Reason Comments Skin Check Encounter Details Date Type Department Care Team (Late st Contact Info) Description 08/06/2014 1:00 PM EDT Office Visit Dermatology at [address] [place] [id number] Davi Radford MD [address] [place] [address], [place] [address] Verruca vulgaris; Hypertrophic scar Discharge Disposition: Home [...] from the original note were not included. [facility] Warts: After Your Visit Your Care Instructions [...] doctor may recommend that you use an buos-crf-njrikyu treatment. These include salicylic acid or duct [...] make walking more comfortable. ?? Take an lzkz-jsc-flxzxph pain medicine, such as acetaminophen (Tylenol), ibuprofen [...] warts after 2 to 3 months of xqzt-unx-uhsbqfu treatment. ?? Your warts are growing or spreading quickly, even with treatment. ?? You cannot walk without pain because of a plantar wart. ?? You do not get better as expected. Where can you learn more? Visit our health information library at [email or web address] You can also view health information on [employer], your personal patient account. Log in or sign up today. Enter K886 in the search box to learn more about Warts: After Your Visit. ?? [id number] [employer]. Care instructions adapted under license by [facility]. This care instruction is for use with your licensed healthcare professional. If you have questions about a medical condition or this instruction, always ask your healthcare professional. [employer] disclaims any warranty or liability for your use of this information. Content Version: 10.3.766472; Current as of: June 14, 2013 documented [...] the patient today who is aware. COPY: Leyda Hawkins A.P.R.N. documented in this encounter Plan of Treatment Not on file documented as of this encounter Visit Diagnoses Diagnosis Verruca vulgaris Viral warts, unspecified Hypertrophic scar Keloid scar documented in this encounter Care Teams Nurse Aide Relationship Specialty Start Date End Date Anny Willoughby MD [address] [place] [address] PCP - General 02/25/10 01/16/24 documented as of this encounter
--- OUTSIDE RECORDS SUMMARY | 2024-03-03 10:01 | XMS_ITS | Encounter Summary ---
Author Organization [facility] [place] [address] Care Team Providers Care Machine Tool Dresser Name Role Phone Anny Willoughby MD Primary Care Provider [phone] Encounter Details Date Type Department Care Team (Late st Contact Info) Description 02/20/2011 [place] [address] Brenden John MD [facility] [place] [address] Social History Tobacco Use Types Packs/Day Years [...] on filedocumented in this encounter Care Teams Machine Tool Dresser Relationship Specialty Start Date End Date Anny Willoughby MD [address] [place] [address] PCP - General 02/25/10 01/16/24 documented as of this encounter
--- NOTE | 2024-03-03 10:03 | W.ED.GENAD ---
Discharge Plan Disposition Patient Disposition: Home Condition: Stable Discharge Details Clinical Impression: Acute bacterial conjunctivitis of right eye Primary Care Provider: Elyse Harden ED Provider: Cara Stoddard Home Meds and New Rx's Prescriptions: Continued acetaminophen 325 mg capsule 325 mg PO ONCE PRN levonorgestrel-ethinyl estrad 0.1-20 mg-mcg tablet 1 tab PO DAILY Qty: 84 4RF Rx Instructions: Skip the placebo pills(the different color at the end of the pack) and start the next pack right away to skip your period. cyclobenzaprine 5 mg Tablet 5 mg PO PRN PRN Discharge Instructions Instructions: Bacitracin and Polymyxin B (Ophthalmic), Conjunctivitis ([facility]) ED, How to Use Eye Drops and Eye Ointment ED Additional Instructions: Please wash your hands before and after touching your eye, do not share washcloths or pillowcases. Please wash all use washcloths and pillowcases in hot water. Does appear you have pinkeye at this time. Use the eyedrops every 3 hours while awake for the next 5 to 7 days. You may apply a warm compress to the eye as needed for discomfort and itching. Follow up with primary care provider in 3-5 days or should be family eye care if no improvement or any worsening. Return to ED sooner if any worsening or concerns. Please take Tylenol or Ibuprofen with food every 4-6 hours as needed for pain and swelling. Stand Alone Forms: Work Release Referrals: Elyse Harden [Primary Care Provider] - 3 days HPI General Mode of arrival: ambulatory. Date/Time Provider Initiated Documentation: 03/03/24 09:56. Limitations to Documentation: no limitations. Information obtained by: patient, RN notes reviewed and old records reviewed. HPI Narrative: 38-year-old female presents to the ER with a chief complaint of red, sensitive to light eye with itching and purulent discharge which began yesterday. She reports that her nieces recently had pinkeye. She does have a past medical history of PTSD bipolar, hyperlipidemia, obstructive sleep apnea, asthma depression. She denies any other associated symptoms denies any throat pain ear pain blurry vision, recent head injuries or any other concerns. Related Data Home Medications ?Medication ?Instructions ?Recorded ?Confirmed cyclobenzaprine 5 mg tablet 5 mg PO PRN PRN 10/03/20 03/03/24 acetaminophen 325 mg capsule 325 mg PO ONCE PRN 04/07/22 03/03/24 levonorgestrel-ethinyl estradiol 1 tab PO DAILY #84 tabs 09/15/23 03/03/24 0.1 mg-20 mcg tablet Previous Rx's ?Medication ?Instructions ?Recorded levonorgestrel-ethinyl estradiol 1 tab PO DAILY #84 tabs 09/15/23 0.1 mg-20 mcg tablet Allergies Allergy/AdvReac Type Severity Reaction Status Date / Time lamotrigine (From Lamictal) Allergy Severe face swells Unverified 03/03/24 09:56 aluminum hydroxide (From Allergy Intermediate Swelling/Ed Unverified 03/03/24 09:56 Mylanta) samantha calcium carbonate (From Allergy Intermediate Swelling/Ed Unverified 03/03/24 09:56 Mylanta) samantha magnesium carbonate (From Allergy Intermediate Swelling/Ed Unverified 03/03/24 09:56 Mylanta) samantha magnesium hydroxide (From Allergy Intermediate Swelling/Ed Unverified 03/03/24 09:56 Mylanta) samantha simethicone (From Mylanta) Allergy Intermediate Swelling/Ed Unverified 03/03/24 09:56 samantha cariprazine (From Vraylar) Allergy Other (See Unverified 03/03/24 09:56 Comment) benzoyl peroxide AdvReac Unknown Skin Rash Unverified 03/03/24 09:56 Barium used for barium AdvReac Intermediate Nausea Uncoded 03/03/24 09:56 swallow General Stated Complaint: EyeProblem INDER: 4 Review of Systems All systems reviewed & are unremarkable except as noted in HPI and below Eyes Eyes: Reports as per HPI, Reports eye discharge, Reports irritation, Reports itchy eyes and Reports photophobia Allergic/Immunologic Allergic/Immunologic: Reports itchy eyes Exam Eyes Alignment and Position: alignment normal Periorbital: periorbital findings normal Eyelids: eyelids normal Conjunctivae: conjunctival abnormality right conjunctival injection diffuse and discharge purulent Sclera: sclerae normal Pupils: PERRL and normal by confrontation EOM: EOM intact bilaterally Course Vital Signs Vital signs: Vital Signs Temperature 36.4 C 03/03/24 09:54 Pulse 104 H 03/03/24 09:54 Respiratory Rate 18 03/03/24 09:54 Blood Pressure 135/84 03/03/24 09:54 Pulse Oximetry 97 03/03/24 09:54 Temperature 36.4 C 03/03/24 09:54 Pulse 104 H 03/03/24 09:54 Respiratory Rate 18 03/03/24 09:54 Blood Pressure 135/84 03/03/24 09:54 Blood Pressure Position Sitting 03/03/24 09:54 Pulse Oximetry 97 03/03/24 09:54 Oxygen Delivery Method Room Air 03/03/24 09:54 Oxygen Flow Rate 0 03/03/24 09:54 Medical Decision Making 38-year-old female presents to the ER with a chief complaint of red, sensitive to light eye with itching and purulent discharge which began yesterday. She reports that her nieces recently had pinkeye. She does have a past medical history of PTSD bipolar, hyperlipidemia, obstructive sleep apnea, asthma depression. She denies any other associated symptoms denies any throat pain ear pain blurry vision, recent head injuries or any other concerns. Will give polymyxin eyedrops here in the department and to go. Instructed to give 1 drop while awake every 3 hours for the next 5 to 7 days. This text was generated using [employer] dictation system, please disregard any oddities of phrase or misspellings. Quality:SDOH Health Related Social Needs: No Data to Display PFSH All Active Problems (Updated 03/03/24 @ 10:06 by Cara Stoddard NP) Acute bacterial conjunctivitis of right eye (Acute) Tailor's bunion of right foot (Acute) Pain in both feet (Acute) Hyperthyroidism (Chronic) Candidiasis of skin (Acute) Plantar fasciitis, bilateral (Acute) Right carpal tunnel syndrome (Acute) Medical History PTSD (post-traumatic stress disorder) Bipolar 1 disorder Obesity Hyperlipidemia Obstructive sleep apnea Jaw pain Foot pain, left History of irregular menstrual cycles Tinea corporis Breast lump Neuroma Low back pain Pain in left wrist History of kidney stones 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 Last CT scan was normal ~. ?? 2ndary to psychotropic medication. Incontinence Pelvic pain Improved on continuous OCPs Migraine Asthma Depression Eating disorder Surgical History [place] teeth removed Family History Father Heart disease Hyperlipidemia Mother Diabetes Hyperlipidemia Thyroid condition Social History Smoking/Tobacco Use Status: Never Smoking risk assessment performed?: Yes Alcohol Intake: never Drug use: Never Substance use type: does not use Do you feel safe at home: Yes Do you feel safe in your relationship?: Yes Female Reproductive History Menstrual Age of Menarche: 15 Duration of menses: >10 days control method: abstinence History History 0 Para Hx # Term Pregnancies Multiple births Hx # Pregnancies Ectopic pregnancies AB induced Hx Number of Living Children AB spontaneous
[2024-03-03] MEDS: Polymyxin B/Trimethoprim Ophth Soln 10 ML BTL OD (10:12)
== END 2024-03-03 10:21 | disposition home or self-care (01) ==
PROVIDERS: Emergency Provider Registered Nurse Emergency; PCP Nurse Practitioner Family
DX: H10.021 Other mucopurulent conjunctivitis, right eye (principal); E78.5 Hyperlipidemia, unspecified
CPT/HCPCS: 99283

== ENCOUNTER 2024-07-04 15:48 | Outpatient (CLI) | payer MEDICARE, MEDICAID, SELFPAY ==
[2024-07-04 08:25] LABS: HCT 46.5 % (36.0-46.0); HGB 15.3 g/dL (11.2-15.7); MCH 27.3 pg (27.0-33.0); MCHC 32.9 % (32.0-36.0); MCV 83 fL (80-95); MPV 9.1 fL (8.0-11.0); Platelet Count 243 10^3/uL (130-400); RBC 5.61 10^6/uL (3.93-5.22); RDW-SD 38.7 fL; WBC 4.01 10^3/uL (4.4-10.8)
[2024-07-04 08:49] LABS: ALT 54 U/L (14-59); AST 24 U/L (15-37); Albumin 3.3 g/dL (3.4-5.0); Alkaline Phosphatase 131 U/L (46-116); Anion Gap 8.9 mmol/L (3-11); BUN 14 mg/dL (7-18); Bilirubin, Total 0.4 mg/dL (0.2-1.0); CO2 25.1 mmol/L (21.0-32.0); CREATININE 0.7 mg/dL (0.55-1.02); Calcium 9.3 mg/dL (8.5-10.1); Calculated LDL 115 mg/dL (<100); Chloride 110 mmol/L (98-107); Cholesterol 178 mg/dL (<200); Estimated GFR 114.16 (mL/min/1.73m2); Glucose 86 mg/dL (74-106); HDL Cholesterol 48 mg/dL (>or=50); Potassium 3.5 mmol/L (3.5-5.1); Sodium 144 mmol/L (136-145); TSH (W/Ref FT4) 0.01 uIU/mL (0.36-3.74); Total Protein 7.2 g/dL (6.4-8.2); Triglyceride 75 mg/dL (<150)
[2024-07-04 08:50] LABS: Hemoglobin A1C 5.1 % (<5.7)
[2024-07-04 09:11] LABS: FREE T4 2.86 ng/dL (0.76-1.46)
== END 2024-07-04 15:49 | disposition home or self-care (01) ==
LOC: LBO 15:49
PROVIDERS: PCP Nurse Practitioner Family; Visit Provider Nurse Practitioner Family
DX: E05.00 Thyrotoxicosis with diffuse goiter without thyrotoxic crisis or storm (principal); E78.5 Hyperlipidemia, unspecified; E66.9 Obesity, unspecified
CPT/HCPCS: 36415; 80053; 80061; 85027; 83036; 84439; 84443

== ENCOUNTER 2024-07-18 04:14 | Outpatient (CLI) | payer MEDICARE, MEDICAID, SELFPAY ==
--- NOTE | 2024-07-18 15:00 | NS.NUTBLAN_ITS ---
Assessment: Ms. Argueta presents for nutritional counseling for weight management. I do not have her current height and weight however she was referred for a diagnosis of obesity. Ms. Argueta describes a somewhat challenging living situation at the moment. She reports living with her family including her parents and describes not always having full access to the kitchen to prepare her own foods. She also describes limited financial resources for food. Ms. Argueta does like to be physically active but most recently she has hurt her back and is moving gingerly. Just prior that she describes being depressed which precipitates inactivity for her. She describes feeling very fatigued. Ms. Argueta noted that a year ago she would walk up to 14 miles a day on some days. Her dietary recall shows the followin am: She may wake up very hungry and have a banana. She does not wake up to eat daily. 7 to 9 am: sweetened yogurt or cottage cheese or 2 pieces of toast with butter or Cheerios with milk Occasionally depending on her hunger she may have a second breakfast of Cheerios with milk 1:00 pm [place] and fruit 7 pm: Whatever her mother makes for dinner or she will make something simple. Maxime also has iced coffee on some days which she puts some sweetened creamer into but not much. Nutrition Diagnosis: Obesity related to physical inactivity and periodic excess energy intake Intervention: After reviewing her intake and her daily habits, I gave Maxime a variety of small changes or tweaks that over time may help her to achieve her goal of weight loss. I suggested having a good source of protein with her breakfast meal as she does not always, She likes hard boiled eggs so I encouraged those or her cottage cheese. I also suggested changing her snack foods which she does eat to protein foods. She stated that she finds the cost of proteins prohibitive so I suggested beans as an excellent source of protein and low cost. Maxime had also stated that her fatigue limits her activity. We discussed that it could be related to some depression that she is feeling but certainly she should continue looking for other causes with her provider. To that end, Maxime stated that she has most energy in the morning and feels most hungry mid afternoon. I explained that being physically active first thing in the morning sets her body up to be less hungry in the afternoon as well as boosting her mood which may in turn help her to eat less snack foods and even be more active throughout the whole day. Following this visit, Maxime stated that her action plan right off will be to take a brisk walk or equivalent first thing in the morning. She will do her walk (on specific days which I do not remember), three days per week. She is confident that she will be successful with this action plan. Monitoring and Evaluation: 1. Maxime will email me with questions or concerns regarding her nutrition care plan and her action plan and we will take her follow up from there. 2. Maxime will evaluate her readiness to take on a second action plan to help her with her goal of weight loss. Thank you kindly for this referral.
== END 2024-07-18 04:15 | disposition home or self-care (01) ==
LOC: DS 04:14
PROVIDERS: PCP Nurse Practitioner Family; Visit Provider Dietitian, Registered
DX: E66.9 Obesity, unspecified (principal)
CPT/HCPCS: 97802

== ENCOUNTER 2024-08-18 00:56 | Outpatient (CLI) | payer MEDICARE, MEDICAID, SELFPAY ==
[2024-08-18 11:52] LABS: FREE T4 1.68 ng/dL (0.76-1.46)
[2024-08-18 11:54] LABS: TSH < 0.01 uIU/mL (0.36-3.74)
[2024-08-18 18:07] LABS: T3,Free 5.2 pg/mL (2.8-5.3)
== END 2024-08-18 00:57 | disposition home or self-care (01) ==
PROVIDERS: Student in an Organized Health Care Education/Training Program; PCP Nurse Practitioner Family; Visit Provider Nurse Practitioner Family
DX: E05.90 Thyrotoxicosis, unspecified without thyrotoxic crisis or storm (principal)
CPT/HCPCS: 36415; 84439; 84443; 84481

== ENCOUNTER 2025-01-18 05:17 | Outpatient (CLI) | payer MEDICARE, MEDICAID, SELFPAY ==
[2025-01-18 11:10] LABS: TSH 1.37 uIU/mL (0.36-3.74)
[2025-01-18 17:49] LABS: T3, Total 152 ng/dL (82-158)
== END 2025-01-18 05:18 | disposition home or self-care (01) ==
PROVIDERS: PCP Nurse Practitioner Family; Visit Provider Student in an Organized Health Care Education/Training Program
DX: E05.90 Thyrotoxicosis, unspecified without thyrotoxic crisis or storm (principal)
CPT/HCPCS: 36415; 84439; 84443; 84480